=== PATIENT | male | born 1970 | race Caucasian/White ===

== ENCOUNTER 2016-08-07 19:45 | Emergency (ER) | payer MEDICARE, OTHER ==
[~2016-08-07 19:45] MED LIST: ACET325T9 PO; ASPI81TA50 PO; ASPI81TA9 PO; CALC200T3 PO; DEBROX; DICL100G7 TP; DIVA250T PO; DIVA500T17 PO; DIVA500T9 PO; ECON15CR TP; FLUT16SP NS; FLUT9.9S NS; LAMISIL; LEVO25TA4 PO; LOPE1LIQ7 PO; LORA10TA3 PO; MAGN400O4 PO; MIDO2.5T PO; MIDO5TAB PO; NIAC500T PO; OLOP2.5D EACHEYE; OMEP40CA5 PO; PHENYLEPHRINE 10% EACHEYE; POLY17PO5 PO; RANI150T6 PO; SERT25TA4 PO; SIMV40TA3 PO; SUCR1ORA PEG; SUCR1TAB PO; ZIPR80CA2 PO
--- NOTE | 2016-08-07 19:55 | ED.ADGEN ---
Past History Past Medical History: GERD, Other Additional Past Medical Histor: Down syndrome Past Surgical History: Appendectomy Alcohol Use: None Drug Use: None Adult General Chief Complaint Chief Complaint ".. I vomited today.. (1).. " [facility] HPI Patient is a 45 year old male who presents with above hx and complaints nausea, vomiting and some generalized abd. pain. Patient states he is passing a lot of gas. Pt. does not remember his last stool. Ate lunch. Pt. reportedly drank too much chocolate milk tonight.. and now his stomach hurts. No recent trauma. No recent travel. No specific ill contacts. Review of Systems Review of Systems Constitutional: Denies fever or chills [] Eyes: Denies change in visual acuity, redness, or eye pain [] HENT: Denies nasal congestion or sore throat [] Respiratory: Denies cough or shortness of breath [] Cardiovascular: No additional information not addressed in HPI [] GI: Complaints of generalized abdominal pain, nausea, vomiting x1 and constipation. Pt. denies, bloody stools or diarrhea [] : Denies dysuria or hematuria [] Musculoskeletal: Denies back pain or joint pain [] Integument: Denies rash or skin lesions [] Neurologic: Denies headache, focal weakness or sensory changes [] Endocrine: Denies polyuria or polydipsia [] Family History Family History Noncontributory Current Medications Current Medications Current Medications Medications (Trade) Dose Ordered Sig/Richard Start Time Stop Time Status Last Admin Dose Admin Famotidine (Pepcid) 20 mg 1X ONCE 08/07/16 21:00 08/07/16 21:01 DC 08/07/16 20:45 20 MG Magnesium Hydroxide (Milk Of Magnesia) 2,400 mg 1X ONCE 08/07/16 21:00 08/07/16 21:01 DC 08/07/16 20:44 2,400 MG Ondansetron HCl (Zofran Odt) 8 mg 1X ONCE 08/07/16 21:00 08/07/16 21:01 DC 08/07/16 20:45 8 MG Oxycodone/ Acetaminophen (Percocet 10/325) 2 tab 1X ONCE 08/07/16 21:00 08/07/16 21:01 DC 08/07/16 20:45 2 TAB Allergies Allergies Allergies Coded Allergies Type Severity Reaction Last Updated Verified NKMA Allergy Unknown 05/18/16 No Physical Exam Physical Exam Constitutional: , no acute distress, non-toxic appearance. [] HENT: Normocephalic, atraumatic, bilateral external ears normal, oropharynx moist, no oral exudates, nose normal. [] Eyes: PERRLA, EOMI, conjunctiva normal, no discharge. [] Neck: Normal range of motion, no tenderness, supple, no stridor. [] Cardiovascular:Heart rate regular rhythm, no murmur [] Lungs & Thorax: Bilateral breath sounds equal at apexes auscultation [] Abdomen: Bowel sounds normal, soft, no focal areas of tenderness, no masses, no pulsatile masses. [] No true rebound tenderness. Refused rectal at this time. No history of dark tarry stools. Distended abdomen. Old surgical scar. Testicles nontender. Pt is currently having multiple large farts. Skin: Warm, dry, no erythema, no rash. [] Back: No tenderness, no CVA tenderness. [] Extremities: No tenderness, no cyanosis, no clubbing, ROM intact, no edema. [] No psoas or heeltap. Neurologic: Alert and oriented X 3, normal motor function, normal sensory function, no focal deficits noted. [] Psychologic: Affect normal, judgement poor insight, mood normal. [] Current Patient Data Vital Signs Vital Signs Date Time Temp Pulse Resp B/P Pulse Ox O2 Delivery O2 Flow Rate FiO2 08/07/16 19:45 97.2 42 18 98 Room Air EKG EKG [] Radiology/Procedures Radiology/Procedures I interpretation x-ray shows no free air under the diaphragm. Old clips. Increased stool [] Course & Med Decision Making Course & Med Decision Making Pertinent Labs and Imaging studies reviewed. (See chart for details). Stay on a clear fluid diet only for the next 2 days. No solids or milk products. May take Tylenol or ibuprofen for pain. Follow-up primary care. Return if any concerns. [] Final Impression Final Impression 1. Abdomen Pain[] 2. History of special needs-mental retardation ( Down Syndrome) 3. History GERD Problems: Dragon Disclaimer Dragon Disclaimer This electronic medical record was generated, in whole or in part, using a voice recognition dictation system. AL HUMPHRIES MD Aug 07, 2016 19:55
[2016-08-07] MEDS ORDERED: OXYCODONE/APAP 10/325 TABLET. PO ONE (21:00)
[2016-08-07] MEDS ORDERED: FAMOTIDINE 20 MG TABLET PO ONE (21:00)
[2016-08-07] MEDS ORDERED: ONDANSETRON ODT 4 MG TAB.RAPDIS PO ONE (21:00)
[2016-08-07] MEDS ORDERED: MAGNESIUM HYDROXIDE 2,400 MG/30 ML ORAL.SUSP. PO ONE (21:00)
[2016-08-07 21:46] VITALS: BP 128/69
--- NOTE | 2016-08-08 07:37 | RAD ---
Acute abdomen series History: Vomiting and abdominal pain. Comparison: 05/03/2016. Findings: Frontal view of the chest. Cardiac silhouette appears within normal limits for size. No pneumoperitoneum or pneumothorax is identified. No acute infiltrate is seen. Supine and upright views of the abdomen. No dilated loops of bowel are seen. Impression: No acute abnormality identified in the chest or abdomen.
== END 2016-08-07 22:05 | disposition home or self-care (01) ==
LOC: ER 19:45
DX: R10.84 Generalized abdominal pain (principal); R11.2 Nausea with vomiting, unspecified; K59.00 Constipation, unspecified; K21.9 Gastro-esophageal reflux disease without esophagitis; Q90.9 Down syndrome, unspecified; Z90.49 Acquired absence of other specified parts of digestive tract
CPT/HCPCS: 74022; 99284; Q0162

== ENCOUNTER 2016-08-16 19:12 | Emergency (ER) | payer MEDICARE, OTHER ==
[~2016-08-16] VITALS: Ht 157.5 cm; Wt 66.9 kg
[2016-08-16 19:14] VITALS: BP 140/74
--- NOTE | 2016-08-16 19:46 | PHYS DOC ---
General Chief Complaint: NAUSEA/VOMITING/DIARRHEA Stated Complaint: NAUSEA Time Seen by MD: 19:30 Source: patient, EMS Problems: History of Present Illness Initial Comments Patient here by EMS with nausea. Patient does have Down syndrome is somewhat of a difficult historian. As best I can gather the story from EMS, the patient drank some cold soda and Garrison-Aid today, complained of nausea, and called EMS. In speaking with the patient, he says he is here because he doesn't feel well. When asked what happened today, he does admit to drinking Garrison-Aid and pop in that he didn't feel well after that. He doesn't quite stated he had nausea, but thinks she may have vomited. He is unable to tell me how many times he vomited, when this happened, or if there is any blood or bilious material. Is review systems is nearly uniformly positive, and he acknowledges every complaint back and ask about. He says he had fever chills URI symptoms or cough. He acknowledges chest pain or shortness of breath. He has abdominal pain nausea vomiting or change amount or bladder habits. He also says his weakness numbness and tingling all the legs. I do think much of this is due to the patient's known Down syndrome and difficulty with questions a communication. Unfortunate, there is no one here to help answer questions for him or provide any additional history. His past nuchal history according him is unremarkable. He says he supposed to be on some medication but doesn't know what they are and doesn't take them. He is a nonsmoker and nonuser of ethanol. He says he lives by himself. Allergies: Coded Allergies: No Known Drug Allergies (Unverified , 08/16/16) Past Medical History Medical History: other Surgical History: appendectomy Social History Smoker: non-smoker Alcohol: none Review of Systems All Other Systems: Reviewed and Negative (Note the patient's review of systems essentially uniformly positive, probably secondary to his known Down syndrome and intellectual challenges.) Physical Exam General Appearance: WD/WN, no apparent distress Eyes: bilateral eye EOMI, bilateral eye PERRL, bilateral eye normal inspection Ear, Nose, Throat: normal pharynx Neck: full range of motion, supple, normal inspection Respiratory: lungs clear, normal breath sounds, no respiratory distress Cardiovascular: regular rate, rhythm, no edema Gastrointestinal: soft, no organomegaly, tenderness Back: no CVA tenderness, no vertebral tenderness Extremities: non-tender, normal inspection, no pedal edema Neurologic/Psychiatric: no motor/sensory deficits, alert, normal mood/affect Skin: normal color Lymphatic: no adenopathy Comments Generally this a well-developed well-nourished white male in no acute distress. Vitals are as noted. HEENT shows ears and throat to be clear. He has clear facies of Down syndrome. Neck is supple without adenopathy or JVD. There's no meningeal signs. Chest is clear and cardiovascular exam shows regular rate and rhythm without murmur. The abdomen does show some mild epigastric tenderness. There is no masses, organomegaly, or perineal findings. Back shows no CVA tenderness. Extremities show no rash cyanosis or edema. Neurologic exam finds patient awake alert oriented to person and place but not to time. I suspect this is his baseline. He does move all extremities well spontaneously with good tone. He is not toxic, lethargic nor irritable. Overall I think his neurologic status is baseline given his Down syndrome. Remainder of physical exam is clinically unremarkable. Orders, Labs, Meds Old charts note patient's very well-known the ER. This is fourth visit this year , with prior visits for abdominal pain and medical screening exams. He was seen in the ER 13 times last year, the vast majority for abdominal pain, and admitted to the hospital in August for syncope and in June for nausea and vomiting. 210 Patient resting comfortably in the ER. He's been able tolerate a GI cocktail as well as by mouth fluids without difficulty. He has no further complaints of nausea. Now is complaining of upper back pain. I did reexamine the area. He continues to have no signs of trauma over the back, no vertebral tenderness, and no bony tenderness in the posterior chest. There is no step- offs or deformities. There is minimal inconsistent tenderness to palpation over the thoracic musculature. Chest remains clear to auscultation bilaterally has no signs of respiratory distress. I discussed with the patient the uncertain cause of his discomfort. This appears to be new complaints since he initially presented. His nausea which she previously had is fully resolved, and is able tolerate by mouth fluids. We will need to investigate his living situation, to make sure we get a ride home and that he is going back to an appropriate setting. We'll ask him to follow up with primary care or return to the ER sooner as needed for worsening anyway. We will caution him is to excessive Garrison- Aid and so to use as well. I do wonder about his comprehension, it's my understanding that he has a medical case worker. We'll try to contact the medical case worker let them know the patient is been here and provide follow-up instructions. Patient apparently really does live by himself and every time they tried to place him in a group setting, he gets violent and is unable to stay. He looks well, in no acute discomfort distress, okay for discharge home at this time. ALRFED WASHINGTON MD Aug 16, 2016 19:45
[2016-08-16] MEDS ORDERED: LIDO:MAALOX 1:1 20 ML SINGLE DOSE PO ONE (20:15)
== END 2016-08-16 22:03 | disposition home or self-care (01) ==
LOC: ER 19:12
DX: R11.0 Nausea (principal); M54.89 Other dorsalgia; R20.0 Anesthesia of skin; R10.9 Unspecified abdominal pain; Q90.9 Down syndrome, unspecified
CPT/HCPCS: 99283

== ENCOUNTER 2016-08-17 11:00 | Emergency (ER) | payer MEDICARE, OTHER ==
[~2016-08-17] VITALS: Ht 157.5 cm; Wt 66.9 kg
--- NOTE | 2016-08-17 11:22 | EKG ---
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
[2016-08-17] MEDS ORDERED: IBUPROFEN 600 MG TABLET. PO ONE (11:30)
--- NOTE | 2016-08-17 11:34 | RAD ---
PORTABLE CHEST 1V Clinical Indication: chest pain Comparison: August 07, 2016. Technique: Portable upright AP view of the chest is obtained. Findings: No focal consolidation, pleural effusion or pneumothorax is seen. Cardiomediastinal silhouette is within normal limits of size. Visualized osseous structures and overlying soft tissues demonstrate no acute interval change. IMPRESSION: No focal consolidation or acute radiographic change.
[2016-08-17 11:50] VITALS: BP 106/69
--- NOTE | 2016-08-17 12:06 | ED.ADGEN ---
Past History Past Medical History: Anxiety, Constipation, GERD, High Cholesterol, Hypothyroid, Hypotension, Other Additional Past Medical Histor: Down syndrome Past Surgical History: Appendectomy Alcohol Use: None Drug Use: None Adult General HPI HPI Patient is a 46-year-old male presents emergency department complaining of right upper chest pain that began while eating this afternoon. Patient denies any other associated symptoms. He denies any diaphoresis, dyspnea, nausea, vomiting. Has had no prehospital intervention for his discomfort. Review of Systems Review of Systems Constitutional: Denies fever or chills [] Eyes: Denies change in visual acuity, redness, or eye pain [] HENT: Denies nasal congestion or sore throat [] Respiratory: Denies cough or shortness of breath [] Cardiovascular: No additional information not addressed in HPI [] GI: Denies abdominal pain, nausea, vomiting, bloody stools or diarrhea [] : Denies dysuria or hematuria [] Musculoskeletal: Denies back pain or joint pain [] Integument: Denies rash or skin lesions [] Neurologic: Denies headache, focal weakness or sensory changes [] Endocrine: Denies polyuria or polydipsia [] Current Medications Current Medications Current Medications Medications (Trade) Dose Ordered Sig/Richard Start Time Stop Time Status Last Admin Dose Admin Ibuprofen (Motrin) 600 mg 1X ONCE 08/17/16 11:30 08/17/16 11:32 DC 08/17/16 11:22 600 MG Allergies Allergies Allergies Coded Allergies Type Severity Reaction Last Updated Verified No Known Drug Allergies 08/16/16 No Physical Exam Physical Exam Constitutional: Well developed, well nourished, no acute distress, non-toxic appearance. [] HENT: Normocephalic, atraumatic, bilateral external ears normal, oropharynx moist, no oral exudates, nose normal. [] Eyes: PERRLA, EOMI, conjunctiva normal, no discharge. [] Neck: Normal range of motion, no tenderness, supple, no stridor. [] Cardiovascular:Heart rate regular rhythm, no murmur [] Lungs & Thorax: Bilateral breath sounds clear to auscultation [] Abdomen: Bowel sounds normal, soft, no tenderness, no masses, no pulsatile masses. [] Skin: Warm, dry, no erythema, no rash. [] Back: No tenderness, no CVA tenderness. [] Extremities: No tenderness, no cyanosis, no clubbing, ROM intact, no edema. [] Neurologic: Alert and oriented X 3, normal motor function, normal sensory function, no focal deficits noted. [] Psychologic: Affect normal, judgement normal, mood normal. [] Current Patient Data Vital Signs Vital Signs Date Time Temp Pulse Resp B/P Pulse Ox O2 Delivery O2 Flow Rate FiO2 08/17/16 11:00 98.0 50 12 98 Room Air Lab Results Laboratory Tests Test 08/17/16 11:38 POC Troponin I 0.00ng/ml (<0.08) EKG EKG EKG interpreted by me, sinus bradycardia, 46 bpm, no ST segment elevation, incomplete right bundle-branch block, [] Radiology/Procedures Radiology/Procedures PORTABLE CHEST 1V Clinical Indication: chest pain Comparison: August 07, 2016. Technique: Portable upright AP view of the chest is obtained. Findings: No focal consolidation, pleural effusion or pneumothorax is seen. Cardiomediastinal silhouette is within normal limits of size. Visualized osseous structures and overlying soft tissues demonstrate no acute interval change. IMPRESSION: No focal consolidation or acute radiographic change. DICTATED AND SIGNED BY: JOSIAH GONZALES MD DATE: 08/17/16 1130 CC: CHRIS CONTRERAS MD; LILY TAVARES MD ~ [] Course & Med Decision Making Course & Med Decision Making Pertinent Labs and Imaging studies reviewed. (See chart for details) Reassuring workup. Discharged home with supportive care and follow-up instructions. [] Final Impression Final Impression Chest wall pain [] Problems: Dragon Disclaimer Dragon Disclaimer This electronic medical record was generated, in whole or in part, using a voice recognition dictation system. CHRIS CONTRERAS MD Aug 17, 2016 12:06
== END 2016-08-17 11:51 | disposition home or self-care (01) ==
LOC: ER 11:00
DX: R07.89 Other chest pain (principal); K21.9 Gastro-esophageal reflux disease without esophagitis; E78.00 Pure hypercholesterolemia, unspecified; E03.9 Hypothyroidism, unspecified; Q90.9 Down syndrome, unspecified
CPT/HCPCS: 71010; 84484; 93005; 99284

== ENCOUNTER 2016-09-28 19:32 | Emergency (ER) | payer MEDICARE, OTHER ==
[~2016-09-28] VITALS: Ht 157.5 cm; Wt 66.9 kg
[~2016-09-28 19:32] MED LIST changes: +ASPI-612 PO; -ASPI81TA9 PO; +DICL100G18 TP; -DICL100G7 TP; -FLUT16SP NS; +FLUT16SP21 NS; +IBUP600T16 PO; -MAGN400O4 PO; +MAGN400O7 PO; +ONDA4TAB10 SL; -SUCR1ORA PEG; +SUCR1ORA11 PEG
[2016-09-28 19:35] VITALS: BP 120/53
[2016-09-28] MEDS ORDERED: IV NORMAL SALINE 1,000ML 1,000 ML IV SCH (20:05)
--- NOTE | 2016-09-28 20:05 | PHYS DOC ---
Past History Past Medical History: Anxiety, Constipation, GERD, High Cholesterol, Hypothyroid, Hypotension, Other Additional Past Medical Histor: Down syndrome Past Surgical History: Appendectomy Alcohol Use: None Drug Use: None Adult General Chief Complaint Chief Complaint: [facility]BDOM[facility]AL PAIN [facility] HPI This patient is a pleasant 46-year-old male with history of Down syndrome presents with right shoulder pain after a fall today and epigastric abdominal pain. Patient reports that throughout the course of the day he ate normally but is complaining of midepigastric abdominal discomfort at this time. Patient reports he does feel sick to stomach. Patient denies any diarrhea. Patient has any cough cold or runny nose. Patient does not think he's had a fever. History is limited secondary to patient's history of Down syndrome. Patient describes the abdominal pain is crampy worsening with direct pressure and he climbs to 10 of 10. Also shoulder pain worse with range of motion especially adduction and extension at the shoulder. Patient says he fell mechanically on the arm directly onto the deltoid. Denies any numbness and tingling denies any other deformity or pain in the elbow wrist or hand. Review of Systems Review of Systems Constitutional: Denies fever or chills [] Eyes: Denies change in visual acuity, redness, or eye pain [] HENT: Denies nasal congestion or sore throat [] Respiratory: Denies cough or shortness of breath [] Cardiovascular: No additional information not addressed in HPI [] GI: Some epigastric abdominal pain with nausea without vomiting or diarrhea : Denies dysuria or hematuria [] Musculoskeletal: Denies back he does complain of right shoulder pain Integument: Denies rash or skin lesions [] Neurologic: Denies headache, focal weakness or sensory changes [] Endocrine: Denies polyuria or polydipsia [] Allergies Allergies Allergies Coded Allergies Type Severity Reaction Last Updated Verified No Known Drug Allergies 08/16/16 No Physical Exam Physical Exam Constitutional: Well developed, well nourished, he is obvious uncomfortable but nontoxic there is no obvious external jones or deformities of trauma. HENT: Normocephalic, atraumatic, bilateral external ears normal, oropharynx moist, no oral exudates, nose normal. [] Eyes: PERRLA, EOMI, conjunctiva normal, no discharge. [] Neck: Normal range of motion, no tenderness, supple, no stridor. [] Cardiovascular:Heart rate regular rhythm, no murmur [] Lungs & Thorax: Bilateral breath sounds clear to auscultation [] Abdomen: Bowel sounds normal, soft, redness along the epigastric region with no masses or pulsatile masses no guarding rebound or organomegaly. No Buck's or McBurney's point tenderness palpation. Skin: Warm, dry, no erythema, no rash. [] Back: No tenderness, no CVA tenderness. [] Extremities: Demonstrates tenderness along the anterior portion of the deltoid without obvious signs of deformity jones or soft tissue swelling. Neurologic: Alert and oriented X 3, normal motor function, normal sensory function, no focal deficits noted. [] Psychologic: Affect normal, judgement normal, mood normal. Patient is not emotional and very appropriate limited history because given Down syndrome. Current Patient Data Vital Signs Vital Signs Date Time Temp Pulse Resp B/P (MAP) Pulse Ox O2 Delivery O2 Flow Rate FiO2 09/28/16 19:35 96.8 49 18 120/53 (75) 100 Room Air Lab Results Laboratory Tests Test 09/28/16 20:30 White Blood Count 4.6 x10^3/uL (4.0-11.0) Red Blood Count 3.56 x10^6/uL (4.30-5.70) L Hemoglobin 12.8 g/dL (13.0-17.5) L Hematocrit 37.3 % (39.0-53.0) L Mean Corpuscular Volume 105 fL (79-100) H Mean Corpuscular Hemoglobin 36 pg (25-35) H Mean Corpuscular Hemoglobin Concent 34 g/dL (31-37) Red Cell Distribution Width 14.1 % (11.5-14.5) Platelet Count 241 x10^3/uL (140-400) Neutrophils (%) (Auto) 51 % (31-73) Lymphocytes (%) (Auto) 37 % (24-48) Monocytes (%) (Auto) 10 % (0-9) H Eosinophils (%) (Auto) 0 % (0-3) Basophils (%) (Auto) 2 % (0-3) Neutrophils # (Auto) 2.4 x10^3uL (1.8-7.7) Lymphocytes # (Auto) 1.7 x10^3/uL (1.0-4.8) Monocytes # (Auto) 0.4 x10^3/uL (0.0-1.1) Eosinophils # (Auto) 0.0 x10^3/uL (0.0-0.7) Basophils # (Auto) 0.1 x10^3/uL (0.0-0.2) Sodium Level 138 mmol/L (136-145) Potassium Level 4.1 mmol/L (3.5-5.1) Chloride Level 100 mmol/L (98-107) Carbon Dioxide Level 31 mmol/L (21-32) Anion Gap 7 (6-14) Blood Urea Nitrogen 11 mg/dL (8-26) Creatinine 1.3 mg/dL (0.7-1.3) Estimated GFR (Cockcroft-Gault) 59.4 BUN/Creatinine Ratio 8 (6-20) Glucose Level 80 mg/dL (70-99) Calcium Level 8.6 mg/dL (8.5-10.1) Total Bilirubin 0.4 mg/dL (0.2-1.0) Aspartate Amino Transferase (AST) 21 U/L (15-37) Alanine Aminotransferase (ALT) 26 U/L (16-63) Alkaline Phosphatase 75 U/L (46-116) Total Protein 6.5 g/dL (6.4-8.2) Albumin 3.4 g/dL (3.4-5.0) Albumin/Globulin Ratio 1.1 (1.0-1.7) Lipase 102 U/L (73-393) EKG EKG [] Radiology/Procedures Radiology/Procedures [] X-ray of right shoulder completed at 195409/28/[address] Crawford demonstrates normal bony inferences with no evidence of fracture clavicles the right place no evidence of before meals joint separation Y view does not show any subluxation or dislocation. Lung mix that are visualized do not demonstrate insensate pneumothorax no obvious rib fractures noted on x-ray. Course & Med Decision Making Course & Med Decision Making Pertinent Labs and Imaging studies reviewed. (See chart for details this patient is a pleasant 40 sexual male with repeated complaint of abdominal pain after eating. Patient's abdomen is soft epigastric pain is not reproducible on exam but patient is pain-free at this time. He's had multiple x-rays of his abdomen and we talked about reducing radiation at this time. Patient complaint is right shoulder after a fall from standing. Physical exam reveals muscle injury without bony fracture or soft tissue swelling or nerve injury based on physical exam findings. Patient resting comfortably without issue given fluids and antiemetics here in the ER will be disposition with Tylenol and Motrin follow-up with his primary care doctor and a sling for comfort. Impression soft tissue contusion to the right shoulder from a fall from standing without evidence of fracture. Impression epigastric abdominal pain from unclear etiology doubt pancreatitis, cholelithiasis, cholecystitis, small bowel section gastroneuritis, gastritis or peptic ulcer disposition. Follow-up with his regular doctor 24-48 hours for any continued symptoms given antacids as well as some in for nausea and Motrin. [] Dragon Disclaimer Dragon Disclaimer This chart was dictated in whole or in part using Voice Recognition software in a busy, high-work load, and often noisy Emergency Department environment. It may contain unintended and wholly unrecognized errors or omissions. Departure Departure: Impression: Primary Impression: Abdominal pain Additional Impressions: GERD (gastroesophageal reflux disease) Shoulder contusion Right shoulder strain Disposition: HOME, SELF-CARE Condition: GOOD Referrals: LILY TAVARES MD (PCP) Patient Instructions: Abdominal Pain (Nonspecific), Contusion, Shoulder Exercises, Generic, SportsMed Additional Instructions: This return for any new or increasing symptoms or if you have any questions or concerns. I would advise a follow-up to primary care doctor to review your medications and see her doctor for possible GI referral for EGD for possible peptic ulcer or gastritis evaluation. Scripts Ondansetron (ZOFRAN ODT) 8 Mg Tab.rapdis 4 MG PO QID for 7 Days Prov: PARVEEN CRAWFORD MD 09/28/16 Pantoprazole Sodium (PROTONIX) 40 Mg Tablet.dr 1 TAB PO DAILY, #30 TAB 5 Refills Prov: PARVEEN CRAWFORD MD 09/28/16 Sucralfate (CARAFATE) 1 Gm Tablet 1 TAB PO QID, #30 TAB 1 Refill Prov: PARVEEN CRAWFORD MD 09/28/16 Problem Qualifiers PARVEEN CRAWFORD MD September 28, 2016 20:05
[2016-09-28] MEDS ORDERED: KETOROLAC 30 MG/ML VIAL. IV ONE (20:15)
[2016-09-28] MEDS ORDERED: 0.9 % SODIUM CHLORIDE 10 ML DISP.SYRIN. IV PRN (20:15)
[2016-09-28] MEDS ORDERED: ONDANSETRON PF 4 MG/2 ML VIAL. IV ONE (20:15)
[2016-09-28 20:46] LABS: BASO # 0.1 x10^3/uL (0.0-0.2); BASO % 2 % (0-3); EOS % 0 % (0-3); HEMATOCRIT 37.3 % (39.0-53.0); HEMOGLOBIN 12.8 g/dL (13.0-17.5); LYMPH # 1.7 x10^3/uL (1.0-4.8); LYMPH % 37 % (24-48); MEAN CORPUSCULAR HEMOGLOBIN 36 pg (25-35); MEAN CORPUSCULAR HGB CONC 34 g/dL (31-37); MEAN CORPUSCULAR VOLUME 105 fL (79-100); MONO # 0.4 x10^3/uL (0.0-1.1); MONO % 10 % (0-9); NEUT # 2.4 x10^3uL (1.8-7.7); NEUT % 51 % (31-73); PLATELET COUNT 241 x10^3/uL (140-400); RED BLOOD COUNT 3.56 x10^6/uL (4.30-5.70); RED CELL DISTRIBUTION WIDTH 14.1 % (11.5-14.5); WHITE BLOOD COUNT 4.6 x10^3/uL (4.0-11.0)
[2016-09-28 21:01] LABS: ALBUMIN 3.4 g/dL (3.4-5.0); ALBUMIN/GLOBULIN RATIO 1.1 (1.0-1.7); CALCIUM 8.6 mg/dL (8.5-10.1); CREATININE 1.3 mg/dL (0.7-1.3); GFR 59.4; POTASSIUM 4.1 mmol/L (3.5-5.1); TOTAL BILIRUBIN 0.4 mg/dL (0.2-1.0); TOTAL PROTEIN 6.5 g/dL (6.4-8.2)
[2016-09-28] MEDS ORDERED: SUCR1TAB35 PO (21:37)
[2016-09-28] MEDS ORDERED: PANT40TA3 PO (21:37)
[2016-09-28] MEDS ORDERED: ONDA8TAB12 PO (21:37)
--- NOTE | 2016-09-29 08:41 | RAD ---
Right shoulder 3 views. History: Shoulder pain 3 views were taken of the right shoulder. There is not evidence of a fracture or dislocation or acute osseous abnormality. Impression: 1. Negative right shoulder.
== END 2016-09-28 22:20 | disposition home or self-care (01) ==
LOC: ER 19:32
DX: S46.911A Strain of unspecified muscle, fascia and tendon at shoulder and upper arm level, right arm, initial encounter (principal); K21.9 Gastro-esophageal reflux disease without esophagitis; E03.9 Hypothyroidism, unspecified; E78.00 Pure hypercholesterolemia, unspecified; Q90.9 Down syndrome, unspecified; W19.XXXA Unspecified fall, initial encounter; Y93.89 Activity, other specified; Y92.89 Other specified places as the place of occurrence of the external cause; Y99.8 Other external cause status; Z90.49 Acquired absence of other specified parts of digestive tract
CPT/HCPCS: 36415; 73030; 80053; 83690; 85027; 96361; 96374; 96375; 99285; J1885; J2405; J7030

== ENCOUNTER 2016-10-10 22:05 | Emergency (ER) | payer MEDICARE, OTHER ==
[~2016-10-10 22:05] MED LIST changes: +ONDA8TAB12 PO; +PANT40TA3 PO; +SUCR1TAB35 PO
--- NOTE | 2016-10-10 22:41 | PHYS DOC ---
Past History Past Medical History: Anxiety, Constipation, GERD, High Cholesterol, Hypothyroid, Hypotension, Other Additional Past Medical Histor: Down syndrome Past Surgical History: No Surgical History, Appendectomy Alcohol Use: None Drug Use: None Adult General Chief Complaint Chief Complaint: ABDOMINAL PAIN HPI HPI Patient is a 46 year old M who presents with presents with abdominal pain after drinking chocolate milk and soda. Patient states he had some nausea and vomiting therefore called the ambulance. Patient denies any fevers. Patient denies any chest pain shortness of breath. Patient has no other complaints. Patient states he feels better than emergency room. Pertinent exam findings: Abdomen soft nontender bowel sounds are normal 4 quadrants ED course: Patient is seen and examined CBC, CMP, lipase, acute abdominal series were ordered 0024: Updated the patient on lab results and x-ray results. During the patient' s stay the emergency room he had no nausea or vomiting. On reexamination patient feels much better and is ready to go home. Pertinent results: Acute abdominal series shows no air fluid levels to suggest a small bowel obstruction Laboratory was unremarkable MDM: After reviewing the chart, CC/HPI/PMH, physical exam, [lab results], [ radiological results], do not believe the patient has a intra-abdominal emergency warranting further workup and/or admission at this time. I do not believe the patient has an acute small bowel obstruction. On reexamination the patient's belly is soft nontender and the patient had no nausea or vomiting while in the emergency room. Patient is stable for discharge. Patient is comfortable going home. Additional verbal discharge instructions were provided to the patient and that if symptoms get worse or any new symptoms arise that are worrisome to the patient he is to return to the emergency room immediately Review of Systems Review of Systems GEN: Denies fevers, chills, sweats HEENT: Denies blurred vision, sore throat CV: Denies chest pain RESP: Denies shortness of air, cough GI: Abdominal pain NEURO: Denies confusion, dizziness MSK: Denies weakness, joint pain/swelling Allergies Allergies Allergies Coded Allergies Type Severity Reaction Last Updated Verified No Known Drug Allergies 08/16/16 No Physical Exam Physical Exam GEN.: No apparent distress. Alert and oriented. HEENT: Head is normocephalic, atraumatic NECK: Supple. LUNGS: CTAB. HEART: RRR, S1, S2 present. Peripheral pulses intact ABDOMEN: Soft, nontender. Positive bowel sounds. EXTREMITIES: Without any cyanosis. NEUROLOGIC: Normal speech, normal tone PSYCHIATRIC: Normal affect, normal mood. SKIN: No ulcerations Current Patient Data Lab Results Laboratory Tests Test 10/10/16 23:40 White Blood Count 4.2 x10^3/uL Red Blood Count 3.17 x10^6/uL Hemoglobin 11.6 g/dL Hematocrit 33.8 % Mean Corpuscular Volume 107 fL Mean Corpuscular Hemoglobin 37 pg Mean Corpuscular Hemoglobin Concent 34 g/dL Red Cell Distribution Width 14.4 % Platelet Count 211 x10^3/uL Neutrophils (%) (Auto) 47 % Lymphocytes (%) (Auto) 42 % Monocytes (%) (Auto) 8 % Eosinophils (%) (Auto) 1 % Basophils (%) (Auto) 2 % Neutrophils # (Auto) 1.9 x10^3uL Lymphocytes # (Auto) 1.8 x10^3/uL Monocytes # (Auto) 0.3 x10^3/uL Eosinophils # (Auto) 0.0 x10^3/uL Basophils # (Auto) 0.1 x10^3/uL Urine Collection Type Void Urine Color Straw Urine Clarity Clear Urine pH 5.5 Urine Specific [place] <=1.005 Urine Protein Neg Urine Glucose (UA) Neg mg/dL Urine Ketones (Stick) Neg mg/dL Urine Blood Neg Urine Nitrite Neg Urine Bilirubin Neg Urine Urobilinogen Dipstick 0.2 mg/dL Urine Leukocyte Esterase Neg Urine RBC 0 /HPF Urine WBC 0 /HPF Urine Squamous Epithelial Cells Occ /LPF Urine Bacteria 0 /HPF Sodium Level 142 mmol/L Potassium Level 3.3 mmol/L Chloride Level 104 mmol/L Carbon Dioxide Level 32 mmol/L Anion Gap 6 Blood Urea Nitrogen 8 mg/dL Creatinine 1.2 mg/dL Estimated GFR (Cockcroft-Gault) 65.2 BUN/Creatinine Ratio 7 Glucose Level 72 mg/dL Calcium Level 7.9 mg/dL Total Bilirubin 0.3 mg/dL Aspartate Amino Transf (AST/SGOT) 22 U/L Alanine Aminotransferase (ALT/SGPT) 28 U/L Alkaline Phosphatase 70 U/L Total Protein 6.2 g/dL Albumin 3.1 g/dL Albumin/Globulin Ratio 1.0 Lipase 127 U/L EKG EKG [] Radiology/Procedures Radiology/Procedures Acute abdominal series shows no air fluid levels to suggest an acute small bowel obstruction [] Course & Med Decision Making Course & Med Decision Making Pertinent Labs and Imaging studies reviewed. (See chart for details) [] Dragon Disclaimer Dragon Disclaimer This chart was dictated in whole or in part using Voice Recognition software in a busy, high-work load, and often noisy Emergency Department environment. It may contain unintended and wholly unrecognized errors or omissions. Departure Departure: Impression: Primary Impression: Nausea and vomiting Additional Impression: Abdominal pain Disposition: HOME, SELF-CARE Condition: IMPROVED Referrals: LILY TAVARES MD (PCP) Patient Instructions: Nausea and Vomiting, [id number] Additional Instructions: Recommend follow-up with PCP in one to 2 days return symptoms increase Scripts Ondansetron (ZOFRAN ODT) 4 Mg Tab.rapdis 1 TAB SL Q8HRS, #10 TAB Prov: ARLENE KO DO 10/11/16 Problem Qualifiers Primary Impression: Nausea and vomiting Vomiting type: unspecified Vomiting Intractability: unspecified Qualified Codes: R11.2 - Nausea with vomiting, unspecified Additional Impression: Abdominal pain Abdominal location: unspecified location Qualified Codes: R10.9 - Unspecified abdominal pain ARLENE KO DO Oct 10, 2016 22:41
[2016-10-11 00:01] LABS: BASO # 0.1 x10^3/uL (0.0-0.2); BASO % 2 % (0-3); EOS % 1 % (0-3); HEMATOCRIT 33.8 % (39.0-53.0); HEMOGLOBIN 11.6 g/dL (13.0-17.5); LYMPH # 1.8 x10^3/uL (1.0-4.8); LYMPH % 42 % (24-48); MEAN CORPUSCULAR HEMOGLOBIN 37 pg (25-35); MEAN CORPUSCULAR HGB CONC 34 g/dL (31-37); MEAN CORPUSCULAR VOLUME 107 fL (79-100); MONO # 0.3 x10^3/uL (0.0-1.1); MONO % 8 % (0-9); NEUT # 1.9 x10^3uL (1.8-7.7); NEUT % 47 % (31-73); PLATELET COUNT 211 x10^3/uL (140-400); RED BLOOD COUNT 3.17 x10^6/uL (4.30-5.70); RED CELL DISTRIBUTION WIDTH 14.4 % (11.5-14.5); WHITE BLOOD COUNT 4.2 x10^3/uL (4.0-11.0)
[2016-10-11 00:10] LABS: ALBUMIN 3.1 g/dL (3.4-5.0); BILIRUBIN,URINE NEG (NEG); CALCIUM 7.9 mg/dL (8.5-10.1); CLARITY,URINE CLEAR; COLOR,URINE STRAW; CREATININE 1.2 mg/dL (0.7-1.3); GFR 65.2; GLUCOSE,URINE NEG (NEG); POTASSIUM 3.3 mmol/L (3.5-5.1); TOTAL BILIRUBIN 0.3 mg/dL (0.2-1.0); TOTAL PROTEIN 6.2 g/dL (6.4-8.2)
[2016-10-11 00:11] LABS: BACTERIA,URINE 0 /HPF (0-FEW); NITRITE,URINE NEG (NEG); RBC,URINE 0 /HPF (0-2); SQUAMOUS EPITHELIAL CELL,UR OCC /LPF; UROBILINOGEN,URINE 0.2 mg/dL (0.2 mg/dL); WBC,URINE 0 /HPF (0-4)
[2016-10-11 00:21] VITALS: BP 108/63
[2016-10-11] MEDS ORDERED: ONDA4TAB10 SL (00:28)
--- NOTE | 2016-10-11 08:02 | RAD ---
Indication abdominal pain. A single view of the chest as well as flat and upright films of the abdomen were obtained. Comparison is made to a similar series of films approximately 2 months earlier. The heart, pulmonary vessels and mediastinum appear normal. The lungs are clear. There has not been a significant change in the appearance of the chest compared to the previous exam. There is no free air. The gas pattern has a nonobstructive appearance. Some gas is seen in small bowel loops which is a nonspecific finding. Similar appearance was seen on the previous exam. No organomegaly or abnormal calculi are seen. IMPRESSION: No acute finding in the chest. Nonobstructive abdominal gas pattern.
== END 2016-10-11 00:40 | disposition home or self-care (01) ==
LOC: ER 22:05
DX: R10.9 Unspecified abdominal pain (principal); R11.2 Nausea with vomiting, unspecified; K21.9 Gastro-esophageal reflux disease without esophagitis; E03.9 Hypothyroidism, unspecified; E78.00 Pure hypercholesterolemia, unspecified; Q90.9 Down syndrome, unspecified; F41.9 Anxiety disorder, unspecified; Z90.49 Acquired absence of other specified parts of digestive tract
CPT/HCPCS: 36415; 74022; 80053; 81001; 83690; 85027; 99285-25

== ENCOUNTER 2016-10-18 17:50 | Emergency (ER) | payer MEDICARE, OTHER ==
[~2016-10-18] VITALS: Ht 157.5 cm; Wt 66.9 kg
[2016-10-18] MEDS ORDERED: ONDANSETRON ODT 4 MG TAB.RAPDIS ONE (18:16)
--- NOTE | 2016-10-18 18:21 | PHYS DOC ---
Past History Past Medical History: Anxiety, Constipation, Depression, GERD, High Cholesterol , Hypothyroid, Hypotension, Other Additional Past Medical Histor: Down syndrome Past Surgical History: Appendectomy Alcohol Use: None Drug Use: None Adult General Chief Complaint Chief Complaint: ABDOMINAL PAIN HPI HPI Patient is a 46 year old male who presents with complaint of abdominal pain, nausea, and vomiting. Patient has history of intellectual disability and GERD. Patient has had multiple visits to the emergency department for similar complaints. Patient has noted in the past that he gets problems with nausea and vomiting after drinking soda. Patient does admit that he drank soda prior to onset of symptoms today. The patient points to the middle of his abdomen when asked where he is feeling pain at this time. Patient states that he did not take any medications to help with symptoms. Patient states that he last vomited earlier today rate patient has had no vomiting in the emergency department since arrival. Patient had a recent visit to the emergency department on October or he had lab work and x-ray images of his abdomen which were unremarkable. Patient rates his pain as 8 out of 10 currently. Patient describes the pain as dull and burning. Patient states that the pain does radiate up into his chest which she states is typical when he gets these episodes. Review of Systems Review of Systems Constitutional: Denies fever or chills [] Eyes: Denies change in visual acuity, redness, or eye pain [] HENT: Denies nasal congestion or sore throat [] Respiratory: Denies cough or shortness of breath [] Cardiovascular: Denies chest pressure or edema [] GI: Abdominal pain, nausea, vomiting, denies diarrhea [] : Denies dysuria or hematuria [] Musculoskeletal: Denies back pain or joint pain [] Integument: Denies rash or skin lesions [] Neurologic: Denies headache, focal weakness or sensory changes [] Current Medications Current Medications Current Medications Medications (Trade) Dose Ordered Sig/Richard Start Time Stop Time Status Last Admin Dose Admin Ondansetron HCl (Zofran Odt) 4 mg STK-MED ONCE 10/18/16 18:16 10/18/16 18:17 DC Allergies Allergies Allergies Coded Allergies Type Severity Reaction Last Updated Verified No Known Drug Allergies 08/16/16 No Physical Exam Physical Exam Constitutional: Well developed, well nourished, no acute distress, non-toxic appearance. [] HENT: Normocephalic, atraumatic, bilateral external ears normal, oropharynx moist, no oral exudates, nose normal. [] Eyes: PERRLA, EOMI, conjunctiva normal, no discharge. [] Neck: Normal range of motion, no tenderness, supple, no stridor. [] Cardiovascular:Heart rate regular rhythm, no murmur [] Lungs & Thorax: Bilateral breath sounds clear to auscultation [] Abdomen: Bowel sounds normal, soft, mild diffuse tenderness throughout abdomen, no guarding on exam, no masses, no pulsatile masses. [] Skin: Warm, dry, no erythema, no rash. [] Back: No tenderness, no CVA tenderness. [] Extremities: No tenderness, no cyanosis, no clubbing, ROM intact, no edema. [] Neurologic: Alert and oriented X 3, normal motor function, normal sensory function, no focal deficits noted. [] Current Patient Data Vital Signs Vital Signs Date Time Temp Pulse Resp B/P (MAP) Pulse Ox O2 Delivery O2 Flow Rate FiO2 10/18/16 17:53 97.9 55 16 98 Room Air EKG EKG Not performed [] Radiology/Procedures Radiology/Procedures Not performed [] Course & Med Decision Making Course & Med Decision Making Pertinent Labs and Imaging studies reviewed. (See chart for details) Patient was given Zofran and GI cocktail in the emergency department. On reevaluation, patient's symptoms have improved. The patient is tolerating oral fluids at this time without difficulty. Patient's vital signs remained stable. I have very low suspicion for an acute surgical process within the abdomen. The patient is appropriate for continued outpatient therapy. Advise follow-up with patient's primary doctor in the next 3-5 days for reevaluation and recommended return to the emergency department for any worsening symptoms. Patient voiced understanding and in agreement with treatment plan. Dragon Disclaimer Dragon Disclaimer This chart was dictated in whole or in part using Voice Recognition software in a busy, high-work load, and often noisy Emergency Department environment. It may contain unintended and wholly unrecognized errors or omissions. Departure Departure: Impression: Primary Impression: Abdominal pain Additional Impression: Nausea and vomiting Disposition: 01 HOME, SELF-CARE Condition: IMPROVED Referrals: LILY TAVARES MD (PCP) Patient Instructions: Abdominal Pain (Nonspecific), Nausea and Vomiting Additional Instructions: Follow-up with your primary doctor in the next 3-5 days. Return to the emergency department for any worsening symptoms. Problem Qualifiers Primary Impression: Abdominal pain Abdominal location: generalized Qualified Codes: R10.84 - Generalized abdominal pain Additional Impression: Nausea and vomiting Vomiting type: unspecified Vomiting Intractability: non-intractable Qualified Codes: R11.2 - Nausea with vomiting, unspecified JAY LUNA MD Oct 18, 2016 18:21
[2016-10-18] MEDS ORDERED: LIDO:MAALOX 1:1 20 ML SINGLE DOSE PO ONE (18:45)
[2016-10-18 19:07] VITALS: BP 125/60
== END 2016-10-18 19:21 | disposition home or self-care (01) ==
LOC: ER 17:50
DX: R11.2 Nausea with vomiting, unspecified (principal); R10.84 Generalized abdominal pain; E03.9 Hypothyroidism, unspecified; E78.00 Pure hypercholesterolemia, unspecified; K21.9 Gastro-esophageal reflux disease without esophagitis; Q90.9 Down syndrome, unspecified; Z90.49 Acquired absence of other specified parts of digestive tract
CPT/HCPCS: 99283

== ENCOUNTER 2016-10-31 22:36 | Emergency (ER) | payer MEDICARE, OTHER ==
[~2016-10-31] VITALS: Ht 157.5 cm; Wt 66.9 kg
[2016-10-31] MEDS ORDERED: IV NORMAL SALINE 1,000ML 1,000 ML ONE (23:17)
[2016-10-31] MEDS ORDERED: IV NORMAL SALINE 1,000ML 1,000 ML IV ONE (23:30)
[2016-11-01 00:18] LABS: BILIRUBIN,URINE NEG (NEG); CLARITY,URINE CLEAR; COLOR,URINE STRAW; GLUCOSE,URINE NEG (NEG); NITRITE,URINE NEG (NEG); UROBILINOGEN,URINE 0.2 mg/dL (0.2 mg/dL)
[2016-11-01 00:19] LABS: BACTERIA,URINE 0 /HPF (0-FEW); SQUAMOUS EPITHELIAL CELL,UR OCC /LPF; WBC,URINE OCC /HPF (0-4)
[2016-11-01 00:20] LABS: ALBUMIN 2.9 g/dL (3.4-5.0); ALBUMIN/GLOBULIN RATIO 0.9 (1.0-1.7); CALCIUM 8.3 mg/dL (8.5-10.1); CREATININE 1.6 mg/dL (0.7-1.3); GFR 46.8; TOTAL BILIRUBIN 0.3 mg/dL (0.2-1.0); TOTAL PROTEIN 6.1 g/dL (6.4-8.2)
[2016-11-01 00:26] LABS: BASO # 0.1 x10^3/uL (0.0-0.2); BASO % 3 % (0-3); EOS % 1 % (0-3); HEMATOCRIT 31.7 % (39.0-53.0); HEMOGLOBIN 11.1 g/dL (13.0-17.5); LYMPH # 1.8 x10^3/uL (1.0-4.8); LYMPH % 50 % (24-48); MEAN CORPUSCULAR HEMOGLOBIN 37 pg (25-35); MEAN CORPUSCULAR HGB CONC 35 g/dL (31-37); MEAN CORPUSCULAR VOLUME 107 fL (79-100); MONO # 0.3 x10^3/uL (0.0-1.1); MONO % 8 % (0-9); NEUT # 1.4 x10^3uL (1.8-7.7); NEUT % 39 % (31-73); PLATELET COUNT 206 x10^3/uL (140-400); RED BLOOD COUNT 2.96 x10^6/uL (4.30-5.70); RED CELL DISTRIBUTION WIDTH 14.2 % (11.5-14.5); WHITE BLOOD COUNT 3.7 x10^3/uL (4.0-11.0)
[2016-11-01 00:38] VITALS: BP 105/64
[2016-11-01] MEDS ORDERED: ONDA8TAB12 PO (00:41)
--- NOTE | 2016-11-01 00:42 | PHYS DOC ---
Past History Past Medical History: Anxiety, Constipation, Depression, GERD, High Cholesterol , Hypothyroid, Hypotension, Other Additional Past Medical Histor: Down syndrome Past Surgical History: Appendectomy Alcohol Use: None Drug Use: None Adult General Chief Complaint Chief Complaint: ABDOMINAL PAIN HPI HPI 46-year-old male with a history of Down syndrome lives independently now presents to emergency room complaining of "not feeling well. ". Patient denies chest pain or shortness of breath. He does report some nausea vomiting and diarrhea. No black or bloody stool. Intermittent crampy abdominal pain but no pain presently. Denies fevers chills sweats or shaking chills. Review of Systems Review of Systems Constitutional: Denies fever or chills [] Eyes: Denies change in visual acuity, redness, or eye pain [] HENT: Denies nasal congestion or sore throat [] Respiratory: Denies cough or shortness of breath [] Cardiovascular: No additional information not addressed in HPI [] GI: Denies abdominal pain, nausea, vomiting, bloody stools or diarrhea [] : Denies dysuria or hematuria [] Musculoskeletal: Denies back pain or joint pain [] Integument: Denies rash or skin lesions [] Neurologic: Denies headache, focal weakness or sensory changes [] Endocrine: Denies polyuria or polydipsia [] Current Medications Current Medications Current Medications Medications (Trade) Dose Ordered Sig/Richard Start Time Stop Time Status Last Admin Dose Admin Sodium Chloride 1,000 ml @ 1,000 mls/hr 1X ONCE 10/31/16 23:30 11/01/16 00:29 DC 10/31/16 23:18 1,000 MLS/HR Allergies Allergies Allergies Coded Allergies Type Severity Reaction Last Updated Verified No Known Drug Allergies 08/16/16 No Physical Exam Physical Exam Constitutional: Well developed, well nourished, no acute distress, non-toxic appearance. [] HENT: Normocephalic, atraumatic, bilateral external ears normal, oropharynx moist, no oral exudates, nose normal. [] Eyes: PERRLA, EOMI, conjunctiva normal, no discharge. [] Neck: Normal range of motion, no tenderness, supple, no stridor. [] Cardiovascular:Heart rate regular rhythm, no murmur [] Lungs & Thorax: Bilateral breath sounds clear to auscultation [] Abdomen: Bowel sounds normal, soft, no tenderness, no masses, no pulsatile masses. [] Skin: Warm, dry, no erythema, no rash. [] Back: No tenderness, no CVA tenderness. [] Extremities: No tenderness, no cyanosis, no clubbing, ROM intact, no edema. [] Neurologic: Alert and oriented X 3, normal motor function, normal sensory function, no focal deficits noted. [] Psychologic: Affect normal, judgement normal, mood normal. [] Current Patient Data Lab Results Laboratory Tests Test 10/31/16 23:00 White Blood Count 3.7 x10^3/uL (4.0-11.0) L Red Blood Count 2.96 x10^6/uL (4.30-5.70) L Hemoglobin 11.1 g/dL (13.0-17.5) L Hematocrit 31.7 % (39.0-53.0) L Mean Corpuscular Volume 107 fL (79-100) H Mean Corpuscular Hemoglobin 37 pg (25-35) H Mean Corpuscular Hemoglobin Concent 35 g/dL (31-37) Red Cell Distribution Width 14.2 % (11.5-14.5) Platelet Count 206 x10^3/uL (140-400) Neutrophils (%) (Auto) 39 % (31-73) Lymphocytes (%) (Auto) 50 % (24-48) H Monocytes (%) (Auto) 8 % (0-9) Eosinophils (%) (Auto) 1 % (0-3) Basophils (%) (Auto) 3 % (0-3) Neutrophils # (Auto) 1.4 x10^3uL (1.8-7.7) L Lymphocytes # (Auto) 1.8 x10^3/uL (1.0-4.8) Monocytes # (Auto) 0.3 x10^3/uL (0.0-1.1) Eosinophils # (Auto) 0.0 x10^3/uL (0.0-0.7) Basophils # (Auto) 0.1 x10^3/uL (0.0-0.2) Urine Collection Type Void Urine Color Straw Urine Clarity Clear Urine pH 7.0 Urine Specific [place] 1.010 Urine Protein Neg (NEG-TRACE) Urine Glucose (UA) Neg mg/dL (NEG) Urine Ketones (Stick) Neg mg/dL (NEG) Urine Blood Mod (NEG) Urine Nitrite Neg (NEG) Urine Bilirubin Neg (NEG) Urine Urobilinogen Dipstick 0.2 mg/dL (0.2 mg/dL) Urine Leukocyte Esterase Neg (NEG) Urine RBC 3-5 /HPF (0-2) Urine WBC Occ /HPF (0-4) Urine Squamous Epithelial Cells Occ /LPF Urine Renal Epithelial Cells Occ /LPF Urine Bacteria 0 /HPF (0-FEW) Sodium Level 142 mmol/L (136-145) Potassium Level 4.0 mmol/L (3.5-5.1) Chloride Level 104 mmol/L (98-107) Carbon Dioxide Level 31 mmol/L (21-32) Anion Gap 7 (6-14) Blood Urea Nitrogen 21 mg/dL (8-26) Creatinine 1.6 mg/dL (0.7-1.3) H Estimated GFR (Cockcroft-Gault) 46.8 BUN/Creatinine Ratio 13 (6-20) Glucose Level 86 mg/dL (70-99) Calcium Level 8.3 mg/dL (8.5-10.1) L Total Bilirubin 0.3 mg/dL (0.2-1.0) Aspartate Amino Transferase (AST) 18 U/L (15-37) Alanine Aminotransferase (ALT) 21 U/L (16-63) Alkaline Phosphatase 94 U/L (46-116) Total Protein 6.1 g/dL (6.4-8.2) L Albumin 2.9 g/dL (3.4-5.0) L Albumin/Globulin Ratio 0.9 (1.0-1.7) L Lipase 102 U/L (73-393) EKG EKG [] Radiology/Procedures Radiology/Procedures [] Course & Med Decision Making Course & Med Decision Making Pertinent Labs and Imaging studies reviewed. (See chart for details) Signs and symptoms consistent with gastroenteritis over patient's hemodynamically stable. He is hydrated. His labs are unremarkable. Patient is improved on reexam with no active nausea or vomiting. Vital signs unremarkable. No further workup or treatment indicated at this time. Patient agrees with outpatient follow-up and strict return precautions given [] Dragon Disclaimer Dragon Disclaimer This chart was dictated in whole or in part using Voice Recognition software in a busy, high-work load, and often noisy Emergency Department environment. It may contain unintended and wholly unrecognized errors or omissions. Departure Departure: Impression: Primary Impression: Gastroenteritis Additional Impressions: Abdominal pain Renal insufficiency Disposition: 01 HOME, SELF-CARE Condition: STABLE Referrals: LILY TAVARES MD (PCP) Patient Instructions: Viral Gastroenteritis Additional Instructions: It appears that you have gastroenteritis today. This means U have vomiting and diarrhea which is caused by a viral syndrome. Rest and drink plenty of fluids. Use Zofran under your tongue every 4 hours if needed for nausea and vomiting. Your kidney function is slightly abnormal with a creatinine of 1.6. This is called renal insufficiency. Follow-up with your doctor tomorrow for reevaluation and further workup and treatment as needed. Return immediately for new severe or worsening symptoms Scripts Ondansetron (ZOFRAN ODT) 8 Mg Tab.rapdis 4 MG PO q4 Y for NAUSEA, #14 Prov: DIANA JAY MD 11/01/16 Problem Qualifiers DIANA JAY MD Nov 01, 2016 00:42
--- NOTE | 2016-11-01 06:35 | EKG ---
[address] [address] Test Date: 2016-10-31 Test Time: 22:47:01 Pat Name: JEY VERDUZCO Department: Room: Gender: M Chief Embalmer: PA : 1970 Requested By: DIANA JAY Order Number: [id number] Reading MD: Measurements Intervals [place] Rate: 48 P: 48 [place]: 146 QRS: 39 QRSD: 108 T: 13 QT: 474 QTc: 423 Interpretive Statements SINUS BRADYCARDIA INCOMPLETE RIGHT BUNDLE BRANCH BLOCK QRS(T) CONTOUR ABNORMALITY CANNOT RULE OUT ANTEROSEPTAL MYOCARDIAL DAMAGE RI6.01 Unconfirmed report No previous ECG available for comparison
--- NOTE | 2016-11-01 07:52 | RAD ---
Chest, 2 views, 10/31/2016: History: Bradycardia Comparison is made to a study from 10/10/2016. The heart size and pulmonary vascularity are normal. No pulmonary infiltrates are seen. There is no evidence of pleural fluid. IMPRESSION: No acute cardiopulmonary abnormality is detected.
== END 2016-11-01 00:57 | disposition home or self-care (01) ==
LOC: ER 22:36
DX: K52.9 Noninfective gastroenteritis and colitis, unspecified (principal); N28.9 Disorder of kidney and ureter, unspecified; E03.9 Hypothyroidism, unspecified; E78.00 Pure hypercholesterolemia, unspecified; K21.9 Gastro-esophageal reflux disease without esophagitis; Q90.9 Down syndrome, unspecified; Z90.49 Acquired absence of other specified parts of digestive tract
CPT/HCPCS: 36415; 71020; 80053; 81001; 83690; 85027; 93005; 96360; 99285-25; J7030

== ENCOUNTER 2016-12-21 12:31 | Emergency (ER) | payer MEDICARE, OTHER ==
[~2016-12-21] VITALS: Ht 157.5 cm; Wt 66.9 kg
--- NOTE | 2016-12-21 13:04 | PHYS DOC ---
Past History Past Medical History: Anxiety, Constipation, Depression, GERD, High Cholesterol , Hypothyroid, Hypotension, Other Additional Past Medical Histor: Down syndrome Past Surgical History: Appendectomy Alcohol Use: None Drug Use: None Adult General Chief Complaint Chief Complaint: CHEST PAIN HPI HPI Patient is a 46-year-old male with a history of Down syndrome who is well-known to this emergency department, presents by EMS from home with the complaint of "my heart hurts". Patient states he called 911 himself. States his chest began to hurt and he wants to get it checked out. He denies vomiting. Denies shortness of air. Shortly after arrival, before any treatment, patient stated he felt better and wanted to go home and play video games. Patient is not able to give any further specifics on his complaints today. He does believe he's had this before. Review of Systems Review of Systems Patient has limited ability to give history and was not able to give appropriate answers to review of systems. Allergies Allergies Allergies Coded Allergies Type Severity Reaction Last Updated Verified No Known Drug Allergies 08/16/16 No Physical Exam Physical Exam Constitutional: Well developed, well nourished, no acute distress, non-toxic appearance. Alert, appears to be at his baseline, no acute distress. Sinus bradycardia on the heart monitor which appears to be his baseline. HENT: Normocephalic, atraumatic, bilateral external ears normal, nose normal. [ ] Eyes: conjunctiva normal, no discharge. [] Neck: Normal range of motion, no stridor. [] Cardiovascular:Heart rate regular rhythm, no murmur [] Lungs & Thorax: Bilateral breath sounds clear to auscultation [] Abdomen: Bowel sounds normal, soft, no masses, no pulsatile masses. Mild epigastric and right upper quadrant tenderness. No right lower quadrant or other abdominal tenderness. Nondistended. Skin: Warm, dry, no erythema, no rash. [] Extremities: No tenderness, no cyanosis, no clubbing, ROM intact, no edema. [] Neurologic: Alert and oriented X 3, normal motor function, normal sensory function, no focal deficits noted. [] EKG EKG 12-lead EKG read by me. Sinus bradycardia. Heart rate 44. There are nonspecific ST changes. EKG was compared to previous EKG dated 10/31/16, and these findings are unchanged from that previous EKG. No STEMI. 1250 [] Radiology/Procedures Radiology/Procedures Right upper quadrant ultrasound read by the radiologist, unremarkable. [] Course & Med Decision Making Course & Med Decision Making Pertinent Labs and Imaging studies reviewed. (See chart for details) 46-year-old male who has Down syndrome presents by EMS from home with the complaint of chest pain. His history is vague. The chest pain resolved without treatment. Initial EKG compared to previous EKG is unchanged. Right upper quadrant ultrasound negative for gallbladder etiology. Labs unremarkable. The patient rested comfortably, visited with the ED staff and took a nap while here. I don't believe there is any indication to admit him for further evaluation. He wanted to go home and was released in stable and improved condition. [] Dragon Disclaimer Dragon Disclaimer This chart was dictated in whole or in part using Voice Recognition software in a busy, high-work load, and often noisy Emergency Department environment. It may contain unintended and wholly unrecognized errors or omissions. Departure Departure: Impression: Primary Impression: Chest pain Disposition: 01 HOME, SELF-CARE Condition: STABLE Referrals: LILY TAVARES MD (PCP) Patient Instructions: Chest Pain (Nonspecific), [id number] Additional Instructions: Follow-up with your doctor if you keep having these symptoms. Return to emergency if they get worse. JOSEPH CORREA MD Dec 21, 2016 13:04
--- NOTE | 2016-12-21 13:20 | EKG ---
[address] [address] Test Date: 2016-12-21 Test Time: 12:42:51 Pat Name: JEY VERDUZCO Department: Room: Gender: M Video Conference Specialist: : 1970 Requested By: JOSEPH CORREA Order Number: [id number] Reading MD: Measurements Intervals [place] Rate: 44 P: 42 [place]: 136 QRS: 51 QRSD: 98 T: 31 QT: 444 QTc: 383 Interpretive Statements SINUS BRADYCARDIA R-S TRANSITION ZONE IN V LEADS DISPLACED TO THE RIGHT INCOMPLETE RIGHT BUNDLE BRANCH BLOCK QRS(T) CONTOUR ABNORMALITY CANNOT RULE OUT INFERIOR MYOCARDIAL DAMAGE RI6.01 Unconfirmed report No previous ECG available for comparison
[2016-12-21 13:27] VITALS: BP 92/55
[2016-12-21 14:13] LABS: BASO # 0.1 x10^3/uL (0.0-0.2); BASO % 2 % (0-3); EOS % 1 % (0-3); HEMATOCRIT 33.9 % (39.0-53.0); HEMOGLOBIN 11.6 g/dL (13.0-17.5); LYMPH # 1.5 x10^3/uL (1.0-4.8); LYMPH % 34 % (24-48); MEAN CORPUSCULAR HEMOGLOBIN 37 pg (25-35); MEAN CORPUSCULAR HGB CONC 34 g/dL (31-37); MEAN CORPUSCULAR VOLUME 108 fL (79-100); MONO # 0.4 x10^3/uL (0.0-1.1); MONO % 10 % (0-9); NEUT # 2.3 x10^3uL (1.8-7.7); NEUT % 54 % (31-73); PLATELET COUNT 225 x10^3/uL (140-400); RED BLOOD COUNT 3.14 x10^6/uL (4.30-5.70); RED CELL DISTRIBUTION WIDTH 13.7 % (11.5-14.5); WHITE BLOOD COUNT 4.3 x10^3/uL (4.0-11.0)
--- NOTE | 2016-12-21 14:34 | RAD ---
Indication: Right upper quadrant pain Technique: Ultrasound of the abdomen was performed. No comparison is available. Findings: Pancreas is mostly obscured by bowel gas. IVC is patent. Aorta is not visualized proximally, the remainder of the aorta is within normal limits. Liver is normal in size and increased in echogenicity. Gallbladder is negative. Common bile duct is within normal limits at 3 mm. Right kidney is without hydronephrosis or mass. Impression: Mild fatty infiltration of the liver. No acute abdominal findings.
[2016-12-21 14:57] LABS: ALBUMIN 2.8 g/dL (3.4-5.0); ALBUMIN/GLOBULIN RATIO 0.8 (1.0-1.7); ALK PHOS 70 U/L (46-116); ALT (SGPT) 12 U/L (16-63); ANION GAP 0 (6-14); AST (SGOT) 15 U/L (15-37); BLOOD UREA NITROGEN 13 mg/dL (8-26); BUN/CREATININE RATIO 10 (6-20); CALCIUM 8.4 mg/dL (8.5-10.1); CARBON DIOXIDE 34 mmol/L (21-32); CHLORIDE 107 mmol/L (98-107); CREATINE KINASE 37 U/L (39-308); CREATININE 1.3 mg/dL (0.7-1.3); GFR 59.4; GLUCOSE 85 mg/dL (70-99); LIPASE 107 U/L (73-393); POTASSIUM 4.5 mmol/L (3.5-5.1); SODIUM 141 mmol/L (136-145); TOTAL BILIRUBIN 0.2 mg/dL (0.2-1.0); TOTAL PROTEIN 6.1 g/dL (6.4-8.2)
== END 2016-12-21 16:16 | disposition home or self-care (01) ==
LOC: ER 12:31
DX: R07.9 Chest pain, unspecified (principal); E03.9 Hypothyroidism, unspecified; K21.9 Gastro-esophageal reflux disease without esophagitis; F41.9 Anxiety disorder, unspecified; Q90.9 Down syndrome, unspecified; E78.00 Pure hypercholesterolemia, unspecified
CPT/HCPCS: 36415; 76705; 80053; 82553; 83690; 84484; 85025; 93005; 99285-25

== ENCOUNTER 2017-02-22 19:23 | Emergency (ER) | payer MEDICARE, OTHER ==
[~2017-02-22] VITALS: Ht 157.5 cm; Wt 57.6 kg
--- NOTE | 2017-02-22 20:15 | ED.ADGEN ---
Past History Past Medical History: Anxiety, Constipation, Depression, GERD, High Cholesterol , Hypothyroid, Hypotension, Other Additional Past Medical Histor: Down syndrome Past Surgical History: Appendectomy Alcohol Use: None Drug Use: None Adult General Chief Complaint Chief Complaint " I hurt.." " My stomach..." " I fell on my shoulder..." HPI HPI Patient is a 46 year old male who presents with with above hx and complaints. Patient has been seen before in the department frequently for his abdomen complaints. Has been seen many times for constipation as well as complaints of diarrhea after his constipation has been treated. Patient denies any bad food intake. Patient has been eating today. No recent travel. No ill contacts. Patient has had previous appendectomy. Patient states he did fall today and injuries right shoulder. Patient is a somewhat poor historian and used to live in a intermediate for care but was unable to get along with the other residents and now lives by himself. Patient frequently eats gas station food since this location near his residence. Patient also complaining of right shoulder pain. Distal neurovascular intact. No obvious contusion. Fair range of motion. Some pain on isolation and stressing rotator cuff elements. Review of Systems Review of Systems Constitutional: Denies fever or chills [] Eyes: Denies change in visual acuity, redness, or eye pain [] HENT: Denies nasal congestion or sore throat [] Respiratory: Denies cough or shortness of breath [] Cardiovascular: No additional information not addressed in HPI [] GI: Complaints of abdominal pain, nausea, and constipation. Denies vomiting, bloody stools or diarrhea [] : Denies dysuria or hematuria [] Musculoskeletal: Denies back pain or joint pain []complaints of right shoulder pain Integument: Denies rash or skin lesions [] Neurologic: Denies headache, focal weakness or sensory changes [] Endocrine: Denies polyuria or polydipsia [] Family History Family History Noncontributory- patient in the past did live with his brother but his brother moved away and patient has poor social support Current Medications Current Medications Current Medications Medications (Trade) Dose Ordered Sig/Richard Start Time Stop Time Status Last Admin Dose Admin Famotidine (Pepcid) 20 mg 1X ONCE 02/22/17 20:30 02/22/17 20:31 DC 02/22/17 20:30 20 MG Ketorolac Tromethamine (Toradol) 30 mg 1X ONCE 02/22/17 21:45 02/22/17 22:03 DC 02/22/17 21:45 30 MG Magnesium Citrate (Citroma) 296 ml 1X ONCE 02/22/17 21:45 02/22/17 22:03 DC 02/22/17 21:45 296 ML Ondansetron HCl (Zofran) 4 mg 1X ONCE 02/22/17 20:30 02/22/17 20:31 DC 02/22/17 20:30 4 MG Sodium Chloride 1,000 ml @ 1,000 mls/hr Q1H 02/22/17 20:16 02/22/17 21:15 DC 02/22/17 21:00 1,000 MLS/HR See nursing for home medications Allergies Allergies Allergies Coded Allergies Type Severity Reaction Last Updated Verified No Known Drug Allergies 08/16/16 No Physical Exam Physical Exam Constitutional: well nourished, no acute distress, non-toxic appearance. [] HENT: Normocephalic, atraumatic, bilateral external ears normal, oropharynx moist, no oral exudates, nose normal. [] Eyes: PERRLA, EOMI, conjunctiva normal, no discharge. [] Neck: Normal range of motion, no tenderness, supple, no stridor. [] Cardiovascular:Heart rate regular rhythm, no murmur [] Lungs & Thorax: Bilateral breath sounds equal at apexes auscultation [] Abdomen: Bowel sounds hyperactive,, soft, some generalized tenderness, distention, no masses, no pulsatile masses. Old appendectomy scar Back: No tenderness, no CVA tenderness. [] Extremities: No tenderness, no cyanosis, no clubbing, ROM intact, no edema. [] Right shoulder pain with Range of motion Neurologic: Alert and oriented X 3, normal motor function, normal sensory function, no focal deficits noted. [] Psychologic: Affect flat, judgement lacks insight, processes concrete, mood normal. []Patient does have some developmental mental deficits Current Patient Data Lab Results Laboratory Tests Test 02/22/17 19:33 02/22/17 20:50 Urine Collection Type Unknown Urine Color Yellow Urine Clarity Clear Urine pH 6.5 Urine Specific [place] <=1.005 Urine Protein Neg (NEG-TRACE) Urine Glucose (UA) Neg mg/dL (NEG) Urine Ketones (Stick) Neg mg/dL (NEG) Urine Blood Trace (NEG) Urine Nitrite Neg (NEG) Urine Bilirubin Neg (NEG) Urine Urobilinogen Dipstick 1 mg/dL (0.2 mg/dL) Urine Leukocyte Esterase Neg (NEG) Urine RBC 0 /HPF (0-2) Urine WBC 0 /HPF (0-4) Urine Squamous Epithelial Cells None /LPF Urine Bacteria 0 /HPF (0-FEW) Urine Opiates Screen Neg (NEG) Urine Methadone Screen Neg (NEG) Urine Barbiturates Neg (NEG) Urine Phencyclidine Screen Neg (NEG) Urine Amphetamine/Methamphetamine Neg (NEG) Urine Benzodiazepines Screen Neg (NEG) Urine Cocaine Screen Neg (NEG) Urine Cannabinoids Screen Neg (NEG) Urine Ethyl Alcohol Neg (NEG) White Blood Count 4.6 x10^3/uL (4.0-11.0) Red Blood Count 3.14 x10^6/uL (4.30-5.70) L Hemoglobin 11.9 g/dL (13.0-17.5) L Hematocrit 33.9 % (39.0-53.0) L Mean Corpuscular Volume 108 fL (79-100) H Mean Corpuscular Hemoglobin 38 pg (25-35) H Mean Corpuscular Hemoglobin Concent 35 g/dL (31-37) Red Cell Distribution Width 13.9 % (11.5-14.5) Platelet Count 227 x10^3/uL (140-400) Neutrophils (%) (Auto) 65 % (31-73) Lymphocytes (%) (Auto) 25 % (24-48) Monocytes (%) (Auto) 9 % (0-9) Eosinophils (%) (Auto) 1 % (0-3) Basophils (%) (Auto) 1 % (0-3) Neutrophils # (Auto) 3.0 x10^3uL (1.8-7.7) Lymphocytes # (Auto) 1.2 x10^3/uL (1.0-4.8) Monocytes # (Auto) 0.4 x10^3/uL (0.0-1.1) Eosinophils # (Auto) 0.0 x10^3/uL (0.0-0.7) Basophils # (Auto) 0.0 x10^3/uL (0.0-0.2) Prothrombin Time 10.5 SEC (9.4-11.4) Prothrombin Time INR 1.0 (0.9-1.1) PTT 23 SEC (23-33) Sodium Level 142 mmol/L (136-145) Potassium Level 3.7 mmol/L (3.5-5.1) Chloride Level 104 mmol/L (98-107) Carbon Dioxide Level 33 mmol/L (21-32) H Anion Gap 5 (6-14) L Blood Urea Nitrogen 4 mg/dL (8-26) L Creatinine 1.2 mg/dL (0.7-1.3) Estimated GFR (Cockcroft-Gault) 65.2 BUN/Creatinine Ratio 3 (6-20) L Glucose Level 78 mg/dL (70-99) Calcium Level 8.4 mg/dL (8.5-10.1) L Total Bilirubin 0.4 mg/dL (0.2-1.0) Aspartate Amino Transferase (AST) 26 U/L (15-37) Alanine Aminotransferase (ALT) 20 U/L (16-63) Alkaline Phosphatase 57 U/L (46-116) Troponin I Quantitative < 0.017 ng/mL (0-0.055) Total Protein 6.5 g/dL (6.4-8.2) Albumin 3.1 g/dL (3.4-5.0) L Albumin/Globulin Ratio 0.9 (1.0-1.7) L Lipase 99 U/L (73-393) EKG EKG My interpretation EKG shows a irregular rhythm at a rate bradycardia rate of 53. There is bimodal P-wave's. There is incomplete right bundle branch block. But no findings acute STEMI.[] Radiology/Procedures Radiology/Procedures My interpretation of x-ray shows no obvious fracture shoulder on chest view area no free air in the diaphragm. Increased stool. Nonobstructive pattern.[] Course & Med Decision Making Course & Med Decision Making Pertinent Labs and Imaging studies reviewed. (See chart for details) Patient's stay on a clear fluid diet only. No solid no milk products for 2 days. Patient to consume a bottle of mag citrate. Patient may take Tylenol and ibuprofen for pain. Patient follow-up primary care. Patient told to expect some diarrhea and cramping [] Final Impression Final Impression 1. Abdomen pain 2. Shoulder pain[] 3. Constipation 4. Anemia- with macrocytic hyperchromic indices 5. Right bundle-branch block-bradycardia Problems: Dragon Disclaimer Dragon Disclaimer This electronic medical record was generated, in whole or in part, using a voice recognition dictation system. AL HUMPHRIES MD Feb 22, 2017 20:15
[2017-02-22] MEDS ORDERED: IV NORMAL SALINE 1,000ML 1,000 ML IV SCH (20:16)
[2017-02-22] MEDS ORDERED: FAMOTIDINE 20 MG/2 ML VIAL IVP ONE (20:30)
[2017-02-22] MEDS ORDERED: ONDANSETRON PF 4 MG/2 ML VIAL. IV ONE (20:30)
[2017-02-22 21:17] LABS: BASO % 1 % (0-3); EOS % 1 % (0-3); HEMATOCRIT 33.9 % (39.0-53.0); HEMOGLOBIN 11.9 g/dL (13.0-17.5); LYMPH # 1.2 x10^3/uL (1.0-4.8); LYMPH % 25 % (24-48); MEAN CORPUSCULAR HEMOGLOBIN 38 pg (25-35); MEAN CORPUSCULAR HGB CONC 35 g/dL (31-37); MEAN CORPUSCULAR VOLUME 108 fL (79-100); MONO # 0.4 x10^3/uL (0.0-1.1); MONO % 9 % (0-9); NEUT % 65 % (31-73); PLATELET COUNT 227 x10^3/uL (140-400); RED BLOOD COUNT 3.14 x10^6/uL (4.30-5.70); RED CELL DISTRIBUTION WIDTH 13.9 % (11.5-14.5); WHITE BLOOD COUNT 4.6 x10^3/uL (4.0-11.0)
[2017-02-22 21:17] LABS: BILIRUBIN,URINE NEG (NEG); CLARITY,URINE CLEAR; COLOR,URINE YELLOW; GLUCOSE,URINE NEG (NEG); NITRITE,URINE NEG (NEG); UROBILINOGEN,URINE 1 mg/dL (0.2 mg/dL)
[2017-02-22 21:18] LABS: BACTERIA,URINE 0 /HPF (0-FEW); RBC,URINE 0 /HPF (0-2); WBC,URINE 0 /HPF (0-4)
[2017-02-22 21:28] LABS: ALBUMIN 3.1 g/dL (3.4-5.0); ALBUMIN/GLOBULIN RATIO 0.9 (1.0-1.7); CALCIUM 8.4 mg/dL (8.5-10.1); CREATININE 1.2 mg/dL (0.7-1.3); GFR 65.2; TOTAL BILIRUBIN 0.4 mg/dL (0.2-1.0); TOTAL PROTEIN 6.5 g/dL (6.4-8.2)
[2017-02-22 21:29] LABS: POTASSIUM 3.7 mmol/L (3.5-5.1)
[2017-02-22] MEDS ORDERED: MAGNESIUM CITRATE 296 ML SOLUTION. PO ONE (21:45)
[2017-02-22] MEDS ORDERED: KETOROLAC 30 MG/ML VIAL. IV ONE (21:45)
[2017-02-22 21:54] LABS: AMPHETAMINE/METHAMPHETAMINE NEG (NEG); BARBITURATES NEG (NEG); BENZODIAZEPINES NEG (NEG); CANNABINOIDS NEG (NEG); COCAINE NEG (NEG); METHADONE NEG (NEG); OPIATES NEG (NEG); PHENCYCLIDINE NEG (NEG)
[2017-02-22 21:59] VITALS: BP 120/76
--- NOTE | 2017-02-23 06:03 | EKG ---
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
--- NOTE | 2017-02-23 09:00 | RAD ---
INDICATION: Abdominal pain. COMPARISON: 10/10/2016 IMPRESSION: 4 views of chest and abdomen obtained. No focal airspace consolidation to suggest pneumonia. Cardiac silhouette is unremarkable. No intraperitoneal free air. Air scattered throughout the large and small bowel in a nonspecific pattern.
== END 2017-02-22 22:07 | disposition home or self-care (01) ==
LOC: ER 19:23
DX: K59.00 Constipation, unspecified (principal); M25.511 Pain in right shoulder; R10.84 Generalized abdominal pain; D53.9 Nutritional anemia, unspecified; D50.9 Iron deficiency anemia, unspecified; R00.1 Bradycardia, unspecified; K21.9 Gastro-esophageal reflux disease without esophagitis; E78.00 Pure hypercholesterolemia, unspecified; E03.9 Hypothyroidism, unspecified; I45.10 Unspecified right bundle-branch block; Q90.9 Down syndrome, unspecified
CPT/HCPCS: 36415; 74022; 80053; 80307; 81001; 83690; 84484; 85025; 85610; 85730; 93005; 96361; 96374; 96375; 99285; J1885; J2405; S0028; G0479; J7030

== ENCOUNTER 2017-03-29 04:55 | Emergency (ER) | payer MEDICARE, OTHER ==
[~2017-03-29] VITALS: Ht 157.5 cm; Wt 57.6 kg
--- NOTE | 2017-03-29 04:57 | ED.ADGEN ---
Past History Past Medical History: Anxiety, Constipation, Depression, GERD, High Cholesterol , Hypothyroid, Hypotension, Other Additional Past Medical Histor: Down syndrome Past Surgical History: Appendectomy Alcohol Use: None Drug Use: None Adult General Chief Complaint Chief Complaint " My stomach hurts..." HPI HPI Patient is a 46 year old male who presents with above hx and complaints. Denies trauma. Denies bad food. Has not followed with his primary. Denies vomiting. States normal stool today. Pt. denies ill contacts. Review of Systems Review of Systems Constitutional: Denies fever or chills [] Eyes: Denies change in visual acuity, redness, or eye pain [] HENT: Denies nasal congestion or sore throat [] Respiratory: Denies cough or shortness of breath [] Cardiovascular: No additional information not addressed in HPI [] GI: complaints abdominal pain, nausea, . denies vomiting, bloody stools or diarrhea [] : Denies dysuria or hematuria [] Musculoskeletal: Denies back pain or joint pain [] Integument: Denies rash or skin lesions [] Neurologic: Denies headache, focal weakness or sensory changes [] Endocrine: Denies polyuria or polydipsia [] All other systems were reviewed and found to be within normal limits, except as documented in this note. Family History Family History Non-contributory Current Medications Current Medications Current Medications Medications (Trade) Dose Ordered Sig/Richard Start Time Stop Time Status Last Admin Dose Admin Acetaminophen (Tylenol) 1,000 mg 1X ONCE 03/29/17 05:00 03/29/17 05:13 DC 03/29/17 05:06 1,000 MG Famotidine (Pepcid) 20 mg 1X ONCE 03/29/17 05:00 03/29/17 05:13 DC 03/29/17 05:06 20 MG Magnesium Hydroxide (Milk Of Magnesia) 2,400 mg 1X ONCE 03/29/17 05:00 03/29/17 05:13 DC 03/29/17 05:06 2,400 MG Ondansetron HCl (Zofran Odt) 8 mg 1X ONCE 03/29/17 05:15 03/29/17 05:16 DC 03/29/17 05:10 8 MG Allergies Allergies Allergies Coded Allergies Type Severity Reaction Last Updated Verified No Known Drug Allergies 08/16/16 No Physical Exam Physical Exam Constitutional: , well nourished, no acute distress, non-toxic appearance. [] HENT: Normocephalic, atraumatic, bilateral external ears normal, oropharynx moist, no oral exudates, nose normal. [] Eyes: PERRLA, EOMI, conjunctiva normal, no discharge. [] Neck: Normal range of motion, no tenderness, supple, no stridor. [] Cardiovascular:Heart rate regular rhythm, no murmur [] Lungs & Thorax: Bilateral breath sounds equal at apex on auscultation [] Abdomen: Bowel sounds all four quadrant, soft, periumbilical tenderness, no masses, no pulsatile masses. No rebound. No heel tap. Old surgical scar. Skin: Warm, dry, no erythema, no rash. [] Back: No tenderness, no CVA tenderness. [] Extremities: No tenderness, no cyanosis, no clubbing, ROM intact, no edema. [] Neurologic: Alert and oriented X 3, normal motor function, normal sensory function, no focal deficits noted. [] Psychologic: Affect normal, judgement MR, mood normal. [] Current Patient Data Vital Signs Vital Signs Date Time Temp Pulse Resp B/P (MAP) Pulse Ox O2 Delivery O2 Flow Rate FiO2 03/29/17 04:59 97.6 62 16 97 Room Air EKG EKG [] Radiology/Procedures Radiology/Procedures [] Course & Med Decision Making Course & Med Decision Making Pertinent Labs and Imaging studies reviewed. (See chart for details). Pt. reports relief of symptom at time of discharge. Stay on clear fluid diet x 48 hrs. No solids or milk products. Allow bowel rest. Take Zantac 150 mg twice a day. Must follow up with primary. [] Final Impression Final Impression 1. Abdomen Pain 2. Hx GERD 3. Hx. of Over eating and consumption of soft drinks.[] Problems: Dragon Disclaimer Dragon Disclaimer This electronic medical record was generated, in whole or in part, using a voice recognition dictation system. AL HUMPHRIES MD Mar 29, 2017 04:57
[2017-03-29 04:59] VITALS: BP 99/59
[2017-03-29] MEDS ORDERED: ACETAMINOPHEN 500 MG TABLET PO ONE ×2 (05:00→05:04)
[2017-03-29] MEDS ORDERED: FAMOTIDINE 20 MG TABLET PO ONE (05:00)
[2017-03-29] MEDS ORDERED: MAGNESIUM HYDROXIDE 2,400 MG/30 ML ORAL.SUSP. PO ONE (05:00)
[2017-03-29] MEDS ORDERED: RANI150T6 PO (05:02)
[2017-03-29] MEDS ORDERED: FAMOTIDINE 20 MG TABLET ONE (05:04)
[2017-03-29] MEDS ORDERED: MAGNESIUM HYDROXIDE 2,400 MG/30 ML ORAL.SUSP. ONE (05:04)
[2017-03-29] MEDS ORDERED: ONDANSETRON ODT 4 MG TAB.RAPDIS ONE (05:10)
[2017-03-29] MEDS ORDERED: ONDANSETRON ODT 4 MG TAB.RAPDIS PO ONE (05:15)
== END 2017-03-29 05:24 | disposition home or self-care (01) ==
LOC: ER 04:55
DX: R10.9 Unspecified abdominal pain (principal); K21.9 Gastro-esophageal reflux disease without esophagitis; E03.9 Hypothyroidism, unspecified; E78.00 Pure hypercholesterolemia, unspecified; F41.9 Anxiety disorder, unspecified; F32.9 Major depressive disorder, single episode, unspecified; Q90.9 Down syndrome, unspecified; Z90.49 Acquired absence of other specified parts of digestive tract
CPT/HCPCS: 99284; Q0162

== ENCOUNTER 2017-04-02 07:50 | Emergency (ER) | payer MEDICARE, OTHER ==
[~2017-04-02] VITALS: Ht 157.5 cm; Wt 57.6 kg
[2017-04-02] MEDS ORDERED: IV NORMAL SALINE 1,000ML 1,000 ML IV SCH (07:57)
--- NOTE | 2017-04-02 08:04 | PHYS DOC ---
Past History Past Medical History: Anxiety, Constipation, Depression, GERD, High Cholesterol , Hypothyroid, Hypotension, Other Additional Past Medical Histor: Down syndrome Past Surgical History: Appendectomy Alcohol Use: None Drug Use: None Adult General Chief Complaint Chief Complaint: ABDOMINAL PAIN HPI HPI Patient is a 46 year old Male who presents with abdominal pain. He states it started last night he's vomited several times. He denies any blood in his vomit. He states his kidneys are hurting. He states he drank 12 sodas last night and this started his attack. Denies any fevers chills chest pain or shortness of breath. He did have a few episodes of diarrhea overnight. Review of Systems Review of Systems Constitutional: Denies fever or chills [] Eyes: Denies change in visual acuity, redness, or eye pain [] HENT: Denies nasal congestion or sore throat [] Respiratory: Denies cough or shortness of breath [] Cardiovascular: No additional information not addressed in HPI [] GI: Positive abdominal pain, nausea, vomiting, Denies bloody stools or diarrhea [] : Denies dysuria or hematuria [] Musculoskeletal: Denies back pain or joint pain [] Integument: Denies rash or skin lesions [] Neurologic: Denies headache, focal weakness or sensory changes [] Endocrine: Denies polyuria or polydipsia [] All other systems were reviewed and found to be within normal limits, except as documented in this note. Allergies Allergies Allergies Coded Allergies Type Severity Reaction Last Updated Verified No Known Drug Allergies 08/16/16 No Physical Exam Physical Exam Constitutional: Well developed, well nourished, no acute distress, non-toxic appearance. [] HENT: Normocephalic, atraumatic, bilateral external ears normal, oropharynx moist, no oral exudates, nose normal. [] Eyes: PERRLA, EOMI, conjunctiva normal, no discharge. [] Neck: Normal range of motion, no tenderness, supple, no stridor. [] Cardiovascular:Heart rate regular rhythm, no murmur [] Lungs & Thorax: Bilateral breath sounds clear to auscultation [] Abdomen: Bowel sounds high-pitched, soft, tender to palpation over the left abdomen, no rebound or guarding, no masses, no pulsatile masses. [] Skin: Warm, dry, no erythema, no rash. [] Back: No tenderness, no CVA tenderness. [] Extremities: No tenderness, no cyanosis, no clubbing, ROM intact, no edema. [] Neurologic: Alert and oriented X 3, normal motor function, normal sensory function, no focal deficits noted. [] Psychologic: Affect normal, judgement normal, mood normal. [] Current Patient Data Vital Signs Vital Signs Date Time Temp Pulse Resp B/P (MAP) Pulse Ox O2 Delivery O2 Flow Rate FiO2 04/02/17 07:50 97.7 54 18 100 Room Air EKG EKG [] Radiology/Procedures Radiology/Procedures [address] [address] IMAGING REPORT Signed PATIENT: JEY VERDUZCO ACCOUNT: [id number] : 1970 LOCATION: ER AGE: 46 SEX: M EXAM STATUS: REG ER ORD. PHYSICIAN: STEPHANIE LIRIANO MD REASON: abd pain PROCEDURE: ACUTE ABDOMEN SERIES Acute abdomen series with chest, 3 views, 04/02/2017: History: Abdominal pain Gas is present in large and small bowel in a nonspecific pattern. No free air is seen in the abdomen. There is no evidence of organomegaly. Lower pelvic calcifications are probably phleboliths. There are mild scattered degenerative changes in the spine. The heart size is normal. The lungs are clear. There is no evidence of pleural fluid. IMPRESSION: No acute abdominal abnormality is detected. DICTATED AND SIGNED BY: MORALES SHELDON MD DATE: 04/02/17 0813 CC: STEPHANIE LIRIANO MD; LILY TAVARES MD ~ Impressions: Abdominal pain Down syndrome Course & Med Decision Making Course & Med Decision Making Pertinent Labs and Imaging studies reviewed. (See chart for details) Abdominal series did not show any abnormalities. He has a lot of stool in his colon. He's had 2 bowel movements in the ER. He was offered a GI cocktail. His labs, urinalysis are all nonacute. His discomfort could eat from poor eating habits since he consumed a 12 pack of soda last night and eats junk food most the time. He is being discharged home with return precautions. He is instructed he needs a follow-up with his primary care physician. He has H2 blockers and was prescribed to him previously. He is agreeable to the plan being discharged in stable condition at this time. Dragon Disclaimer Dragon Disclaimer This electronic medical record was generated, in whole or in part, using a voice recognition dictation system. Departure Departure: Impression: Primary Impression: Abdominal pain Disposition: HOME, SELF-CARE Condition: STABLE Referrals: LILY TAVARES MD (PCP) Patient Instructions: Abdominal Pain (Nonspecific) Additional Instructions: You were seen in the ER for your abdominal pain and we did not find any reasons for your pain or discomfort. He did have 2 bowel movements a in the ER. Your being discharged home. You received a GI cocktail. Please try to avoid greasy foods, milk and other foods that can irritate your stomach like a pop. You need to follow-up with your primary care physician. Please see them within the next 1 -2 days. Return back to ER for severe pain, uncontrolled nausea vomiting, fevers chills, troubles breathing, or any other concerns. STEPHANIE LIRIANO MD Apr 02, 2017 08:04
--- NOTE | 2017-04-02 08:17 | RAD ---
Acute abdomen series with chest, 3 views, 04/02/2017: History: Abdominal pain Gas is present in large and small bowel in a nonspecific pattern. No free air is seen in the abdomen. There is no evidence of organomegaly. Lower pelvic calcifications are probably phleboliths. There are mild scattered degenerative changes in the spine. The heart size is normal. The lungs are clear. There is no evidence of pleural fluid. IMPRESSION: No acute abdominal abnormality is detected.
[2017-04-02 08:28] LABS: BASO # 0.1 x10^3/uL (0.0-0.2); BASO % 2 % (0-3); EOS # 0.1 x10^3/uL (0.0-0.7); EOS % 1 % (0-3); HEMATOCRIT 37.3 % (39.0-53.0); HEMOGLOBIN 12.9 g/dL (13.0-17.5); LYMPH # 1.6 x10^3/uL (1.0-4.8); LYMPH % 27 % (24-48); MEAN CORPUSCULAR HEMOGLOBIN 38 pg (25-35); MEAN CORPUSCULAR HGB CONC 35 g/dL (31-37); MEAN CORPUSCULAR VOLUME 109 fL (79-100); MONO # 0.5 x10^3/uL (0.0-1.1); MONO % 9 % (0-9); NEUT # 3.6 x10^3uL (1.8-7.7); NEUT % 62 % (31-73); PLATELET COUNT 233 x10^3/uL (140-400); RED BLOOD COUNT 3.41 x10^6/uL (4.30-5.70); RED CELL DISTRIBUTION WIDTH 14.1 % (11.5-14.5); WHITE BLOOD COUNT 5.9 x10^3/uL (4.0-11.0)
[2017-04-02 08:43] LABS: BILIRUBIN,URINE NEG (NEG); CLARITY,URINE CLEAR; COLOR,URINE STRAW; GLUCOSE,URINE NEG (NEG); NITRITE,URINE NEG (NEG); UROBILINOGEN,URINE 0.2 mg/dL (0.2 mg/dL)
[2017-04-02 08:44] LABS: BACTERIA,URINE 0 /HPF (0-FEW); RBC,URINE 0 /HPF (0-2); WBC,URINE 0 /HPF (0-4)
[2017-04-02 08:45] LABS: ALBUMIN 3.1 g/dL (3.4-5.0); CALCIUM 8.7 mg/dL (8.5-10.1); CREATININE 1.4 mg/dL (0.7-1.3); DIRECT BILIRUBIN 0.1 mg/dL (0.0-0.2); GFR 54.6; POTASSIUM 4.4 mmol/L (3.5-5.1); TOTAL BILIRUBIN 0.2 mg/dL (0.2-1.0); TOTAL PROTEIN 6.7 g/dL (6.4-8.2)
[2017-04-02 08:45] LABS: BARBITURATES NEG (NEG); BENZODIAZEPINES NEG (NEG); CANNABINOIDS NEG (NEG); COCAINE NEG (NEG); METHADONE NEG (NEG); OPIATES NEG (NEG); PHENCYCLIDINE NEG (NEG)
[2017-04-02 08:46] LABS: AMPHETAMINE/METHAMPHETAMINE NEG (NEG)
[2017-04-02] MEDS ORDERED: LIDO:MAALOX 1:1 20 ML SINGLE DOSE PO ONE (09:30)
[2017-04-02 10:10] VITALS: BP 119/49
== END 2017-04-02 10:10 | disposition home or self-care (01) ==
LOC: ER 07:50
DX: R10.9 Unspecified abdominal pain (principal); R11.2 Nausea with vomiting, unspecified; K21.9 Gastro-esophageal reflux disease without esophagitis; E78.00 Pure hypercholesterolemia, unspecified; E03.9 Hypothyroidism, unspecified; F32.9 Major depressive disorder, single episode, unspecified; F41.9 Anxiety disorder, unspecified; Q90.9 Down syndrome, unspecified; Z90.49 Acquired absence of other specified parts of digestive tract
CPT/HCPCS: 36415; 74022; 80048; 80076; 80307; 81001; 82550; 83690; 85025; 85610; 85730; 96360; 96361; 99285-25; G0479; J7030

== ENCOUNTER 2017-04-04 23:55 | Emergency (ER) | payer MEDICARE, OTHER ==
[~2017-04-04] VITALS: Ht 157.5 cm; Wt 57.0 kg
[2017-04-05] VITALS: BP 101/51
[2017-04-05 00:21] LABS: BASO # 0.2 x10^3/uL (0.0-0.2); BASO % 4 % (0-3); EOS # 0.1 x10^3/uL (0.0-0.7); EOS % 1 % (0-3); HEMATOCRIT 36.2 % (39.0-53.0); HEMOGLOBIN 12.9 g/dL (13.0-17.5); LYMPH # 1.9 x10^3/uL (1.0-4.8); LYMPH % 38 % (24-48); MEAN CORPUSCULAR HEMOGLOBIN 38 pg (25-35); MEAN CORPUSCULAR HGB CONC 36 g/dL (31-37); MEAN CORPUSCULAR VOLUME 108 fL (79-100); MONO # 0.5 x10^3/uL (0.0-1.1); MONO % 10 % (0-9); NEUT # 2.4 x10^3uL (1.8-7.7); NEUT % 47 % (31-73); PLATELET COUNT 223 x10^3/uL (140-400); RED BLOOD COUNT 3.36 x10^6/uL (4.30-5.70); RED CELL DISTRIBUTION WIDTH 14.1 % (11.5-14.5)
[2017-04-05 00:33] LABS: CALCIUM 8.6 mg/dL (8.5-10.1); CREATININE 1.3 mg/dL (0.7-1.3); DIRECT BILIRUBIN 0.1 mg/dL (0.0-0.2); GFR 59.4; POTASSIUM 4.3 mmol/L (3.5-5.1); TOTAL BILIRUBIN 0.3 mg/dL (0.2-1.0); TOTAL PROTEIN 6.3 g/dL (6.4-8.2)
--- NOTE | 2017-04-05 00:41 | PHYS DOC ---
Past History Past Medical History: Anxiety, Constipation, Depression, GERD, High Cholesterol , Hypothyroid, Hypotension, Other Additional Past Medical Histor: Down syndrome Past Surgical History: Appendectomy Alcohol Use: None Drug Use: None Adult General Chief Complaint Chief Complaint: left leg pain HPI HPI This is a pleasant 46-year-old male with a history of Down syndrome presenting to the emergency department by EMS. EMS reports the patient is told and that he has chest pain. When I examine and discussed with the patient his symptoms he complains of left leg pain in the left thigh. He is a very poor historian. He denies chest pain or shortness of breath to me. The pain in his leg is moderate intermittent nonradiating without leaving factors. He denies any rashes. On reexamination the patient denies any symptoms he denies leg pain or chest pain. Review of systems is negative for chest pain shortness of breath abdominal pain nausea or vomiting. All other review of systems is negative unless otherwise noted in history of present illness. ED course: 46-year-old gentleman presenting reporting chest pain to EMS which she denies to me. He endorses leg pain on my initial interview but when I reevaluated him he denies having left leg pain. Objectively: The patient's vital signs showed the afebrile with a normal heart rate. Saturating well on room air. Pertinent physical exam findings show normal extremities. No evidence of cellulitis. Nontender to palpation of the joints. Normal range of motion of the joints. Abdomen is soft and nontender. Lungs are clear to auscultation bilaterally. Regular rate and rhythm. EKG obtained and compared to previous on February 22, 2017 shows similar morphology. Sinus rhythm with a mildly bradycardic rate. ST segments congruent. Intervals show mild QRS prolongation. Chest x-ray obtained and reviewed by myself shows no obvious infiltrate or pneumothorax. Compared to previous on October [id number] similar in appearance. Blood work unremarkable. Heart score below. The patient was then discharged home in stable condition to follow up with their primary care physician over the next 2-3 days. They were to return if their symptoms worsened or if they were concerned for any reason. [id number] discharge instructions and return precautions were given. Patient's questions were answered to their satisfaction. Patient is comfortable plan. HEART SCORE History Slightly suspicious 0 Moderately suspicious +1 Highly suspicious +2 EKG 1 point: No ST depression but LBBB, LVH, repolarization changes (ex: digoxin); 2 points: ST depression/elevation not due to LBBB, LVH, or digoxin Normal 0 Non-specific repolarization disturbance +[address] depression +2 Age <45 0 45-65 +1 65 +2 Risk factors Risk factors: HTN, hypercholesterolemia, DM, obesity (BMI >30 kg/m), smoking (current, or smoking cessation 3 mo), positive family history (parent or sibling with CVD before age 65); atherosclerotic disease: prior NH, PCI/CABG, CVA/TIA, or peripheral arterial disease No known risk factors 0 1-2 risk factors +1 3 risk factors or history of atherosclerotic disease +2 Initial troponin Use local assays and corresponding cutoffs normal limit 0 1-2 normal limit +1 >2 normal limit +2 Total points 3 Review of Systems Review of Systems SEE ABOVE. Allergies Allergies Allergies Coded Allergies Type Severity Reaction Last Updated Verified No Known Drug Allergies 04/05/17 No Physical Exam Physical Exam SEE ABOVE Constitutional: Well developed, well nourished, no acute distress, non-toxic appearance. [] HENT: Normocephalic, atraumatic, bilateral external ears normal, oropharynx moist, no oral exudates, nose normal. [] Eyes: PERRLA, EOMI, conjunctiva normal, no discharge. [] Neck: Normal range of motion, no tenderness, supple, no stridor. [] Cardiovascular:Heart rate regular rhythm, no murmur [] Lungs & Thorax: Bilateral breath sounds clear to auscultation [] Abdomen: Bowel sounds normal, soft, no tenderness, no masses, no pulsatile masses. [] Skin: Warm, dry, no erythema, no rash. [] Back: No tenderness, no CVA tenderness. [] Extremities: No tenderness, no cyanosis, no clubbing, ROM intact, no edema. [] No evidence of erythema or swelling of the legs. Neurologic: Alert and oriented X 3, normal motor function, normal sensory function, no focal deficits noted. [] Psychologic: Affect normal, judgement normal, mood normal. [] Current Patient Data Lab Results Laboratory Tests Test 04/05/17 00:02 White Blood Count 5.0 x10^3/uL (4.0-11.0) Red Blood Count 3.36 x10^6/uL (4.30-5.70) L Hemoglobin 12.9 g/dL (13.0-17.5) L Hematocrit 36.2 % (39.0-53.0) L Mean Corpuscular Volume 108 fL (79-100) H Mean Corpuscular Hemoglobin 38 pg (25-35) H Mean Corpuscular Hemoglobin Concent 36 g/dL (31-37) Red Cell Distribution Width 14.1 % (11.5-14.5) Platelet Count 223 x10^3/uL (140-400) Neutrophils (%) (Auto) 47 % (31-73) Lymphocytes (%) (Auto) 38 % (24-48) Monocytes (%) (Auto) 10 % (0-9) H Eosinophils (%) (Auto) 1 % (0-3) Basophils (%) (Auto) 4 % (0-3) H Neutrophils # (Auto) 2.4 x10^3uL (1.8-7.7) Lymphocytes # (Auto) 1.9 x10^3/uL (1.0-4.8) Monocytes # (Auto) 0.5 x10^3/uL (0.0-1.1) Eosinophils # (Auto) 0.1 x10^3/uL (0.0-0.7) Basophils # (Auto) 0.2 x10^3/uL (0.0-0.2) Sodium Level 145 mmol/L (136-145) Potassium Level 4.3 mmol/L (3.5-5.1) Chloride Level 108 mmol/L (98-107) H Carbon Dioxide Level 33 mmol/L (21-32) H Anion Gap 4 (6-14) L Blood Urea Nitrogen 8 mg/dL (8-26) Creatinine 1.3 mg/dL (0.7-1.3) Estimated GFR (Cockcroft-Gault) 59.4 Glucose Level 84 mg/dL (70-99) Calcium Level 8.6 mg/dL (8.5-10.1) Total Bilirubin 0.3 mg/dL (0.2-1.0) Direct Bilirubin 0.1 mg/dL (0.0-0.2) Aspartate Amino Transferase (AST) 23 U/L (15-37) Alanine Aminotransferase (ALT) 23 U/L (16-63) Alkaline Phosphatase 65 U/L (46-116) Troponin I Quantitative < 0.017 ng/mL (0-0.055) Total Protein 6.3 g/dL (6.4-8.2) L Albumin 3.0 g/dL (3.4-5.0) L Lipase 136 U/L (73-393) EKG EKG [] Radiology/Procedures Radiology/Procedures [] Course & Med Decision Making Course & Med Decision Making Pertinent Labs and Imaging studies reviewed. (See chart for details) [] Dragon Disclaimer Dragon Disclaimer This electronic medical record was generated, in whole or in part, using a voice recognition dictation system. Departure Departure: Impression: Primary Impression: Leg pain Disposition: HOME, SELF-CARE Condition: STABLE Referrals: LILY TAVARES MD (PCP) Additional Instructions: Thank you for allowing us to participate in your care today. Followup with your primary care physician in 3 days if your symptoms do not improve. Call your Primary Doctor tomorrow and inform them of your visit today. If you do not have a primary care provider you can ask for a list of our primary care providers. Return to the emergency department you have any new or concerning findings. This should be evaluated by the primary care physician and any necessary consulting services for continued management within a few days after discharge. Return to emergency room if you have any new or concerning symptoms including but not limited to fever, chills, nausea, vomiting, intractable pain, any new rashes, chest pain, shortness of air, uncontrolled bleeding, difficulty breathing, and/or vision loss. JINA COLEMAN MD Apr 05, 2017 00:41
--- NOTE | 2017-04-05 01:09 | EKG ---
[address] [address] Test Date: 2017-04-04 Test Time: 23:58:02 Pat Name: JEY VERDUZCO Department: Room: Gender: M Life Enrichment Director: CAMPBELL : 1970 Requested By: JINA COLEMAN Order Number: [id number] Reading MD: Piotr Ceja Measurements Intervals [place] Rate: 51 P: 36 PA: 134 QRS: 55 QRSD: 102 T: 24 QT: 420 QTc: 389 Interpretive Statements SINUS RHYTHM R-S TRANSITION ZONE IN V LEADS DISPLACED TO THE RIGHT INCOMPLETE RIGHT BUNDLE BRANCH BLOCK NO SPECIFIC ECG ABNORMALITIES RI6.01 Unconfirmed report Electronically Signed On 04-10-2017 16:10:18 REFUELING RAMP ATTENDANT by Piotr Ceja
--- NOTE | 2017-04-05 08:11 | RAD ---
PORTABLE CHEST 1V Clinical Indication: chest pain Comparison: April 02, 2017 Technique: Upright portable AP view of the chest is obtained. Findings: No focal consolidation, pleural effusion or pneumothorax is seen. Cardiomediastinal silhouette is stable in size. Visualized osseous structures and overlying soft tissues demonstrate no acute interval change. IMPRESSION: No focal consolidation or acute radiographic finding.
== END 2017-04-05 01:00 | disposition home or self-care (01) ==
LOC: ER 23:55
DX: M79.652 Pain in left thigh (principal); K21.9 Gastro-esophageal reflux disease without esophagitis; E78.00 Pure hypercholesterolemia, unspecified; E03.9 Hypothyroidism, unspecified; F32.9 Major depressive disorder, single episode, unspecified; F41.9 Anxiety disorder, unspecified; Q90.9 Down syndrome, unspecified
CPT/HCPCS: 36415; 71010; 80048; 80076; 83690; 84484; 85025; 93005; 99285-25

== ENCOUNTER 2017-04-20 14:06 | Emergency (ER) | payer MEDICARE, OTHER ==
--- NOTE | 2017-04-20 15:02 | EKG ---
[address] [address] Test Date: 2017-04-20 Test Time: 14:32:22 Pat Name: JEY VERDUZCO Department: Room: Gender: M Programming Specialist: CAMPBELL : 1970 Requested By: ELIS PATTERSON Order Number: [id number] Reading MD: Piotr Ceja Measurements Intervals [place] Rate: 45 P: 32 SD: 134 QRS: 55 QRSD: 102 T: 34 QT: 460 QTc: 404 Interpretive Statements SINUS BRADYCARDIA INCOMPLETE RIGHT BUNDLE BRANCH BLOCK NONSPECIFIC ST-T WAVE CHANGES. RI6.01 Unconfirmed report Compared to ECG 04/04/2017 23:58:02 Sinus rhythm no longer present Electronically Signed On 05-01-2017 15:54:31 SOCIAL SCIENCES INSTRUCTOR by Piotr Ceja
[2017-04-20 15:07] VITALS: BP 96/57
--- NOTE | 2017-04-20 15:41 | RAD ---
H CT scan of the head without contrast 04/20/2017 Clinical History: Fall with head trauma. Technique: Unenhanced, contiguous, 5 mm axial sections were obtained through the head. One or more of the following individualized dose reduction techniques were utilized for this study: 1. Automated exposure control. 2. Adjustment of the mA and/or kV according to patient size. 3. Use of iterative reconstruction technique. Findings: Comparison study is dated 01/05/2012. There is generalized parenchymal atrophy. Small scattered areas of decreased attenuation are seen within the periventricular and subcortical white matter of both cerebral hemispheres consistent with areas of small vessel ischemic disease. No acute parenchymal abnormality is seen. No extra-axial fluid collection is noted. No skull fracture is seen. Impression: No acute intracranial abnormality is seen. CT scan of the cervical spine without contrast 04/20/2017 Clinical history: Neck pain post fall. Technique: Unenhanced, contiguous, 0.625 mm axial sections were obtained through the cervical spine. 2 mm reconstructed sagittal, axial, and and coronal images were obtained. One or more of the following individualized dose reduction techniques were utilized for this study: 1. Automated exposure control. 2. Adjustment of the mA and/or kV according to patient size. 3. Use of iterative reconstruction technique. Findings: Sagittal and coronal reconstructed images demonstrate mild lateral curvature of the cervical spine convex to the right. There is straightening of the normal cervical lordosis. Degenerative changes consisting of disc space narrowing, vertebral endplate sclerosis and mild anterior and posterior vertebral body osteophyte formation are seen involving the C5-6 disc space. No fracture or subluxation of the cervical vertebrae is seen. Degenerative changes are involving the uncovertebral and facet joints throughout the cervical disc spaces. Impression: No fracture or subluxation of the cervical vertebra is seen.
[2017-04-20 16:09] LABS: BASO # 0.1 x10^3/uL (0.0-0.2); BASO % 3 % (0-3); EOS # 0.1 x10^3/uL (0.0-0.7); EOS % 2 % (0-3); HEMATOCRIT 39.7 % (39.0-53.0); HEMOGLOBIN 13.5 g/dL (13.0-17.5); LYMPH # 1.4 x10^3/uL (1.0-4.8); LYMPH % 37 % (24-48); MEAN CORPUSCULAR HEMOGLOBIN 37 pg (25-35); MEAN CORPUSCULAR HGB CONC 34 g/dL (31-37); MEAN CORPUSCULAR VOLUME 110 fL (79-100); MONO # 0.3 x10^3/uL (0.0-1.1); MONO % 9 % (0-9); NEUT # 1.9 x10^3uL (1.8-7.7); NEUT % 50 % (31-73); PLATELET COUNT 231 x10^3/uL (140-400); RED BLOOD COUNT 3.61 x10^6/uL (4.30-5.70); RED CELL DISTRIBUTION WIDTH 14.1 % (11.5-14.5); WHITE BLOOD COUNT 3.8 x10^3/uL (4.0-11.0)
[2017-04-20 16:24] LABS: ALBUMIN 2.9 g/dL (3.4-5.0); ALBUMIN/GLOBULIN RATIO 0.8 (1.0-1.7); ALK PHOS 63 U/L (46-116); ALT (SGPT) 22 U/L (16-63); ANION GAP 6 (6-14); AST (SGOT) 25 U/L (15-37); BLOOD UREA NITROGEN 13 mg/dL (8-26); BUN/CREATININE RATIO 10 (6-20); CALCIUM 8.9 mg/dL (8.5-10.1); CARBON DIOXIDE 32 mmol/L (21-32); CHLORIDE 107 mmol/L (98-107); CREATININE 1.3 mg/dL (0.7-1.3); GFR 59.4; GLUCOSE 96 mg/dL (70-99); POTASSIUM 4.9 mmol/L (3.5-5.1); SODIUM 145 mmol/L (136-145); TOTAL BILIRUBIN 0.2 mg/dL (0.2-1.0); TOTAL PROTEIN 6.7 g/dL (6.4-8.2)
[2017-04-20 16:25] LABS: VAL ACID 65 mcg/mL (50-100)
--- NOTE | 2017-04-20 17:13 | PHYS DOC ---
Past History Past Medical History: Anxiety, Constipation, Depression, GERD, High Cholesterol , Hypothyroid, Hypotension, Other Additional Past Medical Histor: Down syndrome Past Surgical History: Appendectomy Alcohol Use: None Drug Use: None Adult General Chief Complaint Chief Complaint: SEIZURE HPI HPI 46-year-old male patient with history of Down syndrome and anxiety and seizures on Depakote and resident of [facility] is in by EMS because of seizure. Patient states he felt he was going to have a seizure and laid on the ground without having a fall. Patient changed his story later on and stated he had an unwitnessed seizure for a short time EMS with c-collar in place. Patient denies any problem at this time. Patient is a poor historian. Review of Systems Review of Systems Constitutional: Denies fever or chills [] Eyes: Denies change in visual acuity, redness, or eye pain [] HENT: Denies nasal congestion or sore throat [] Respiratory: Denies cough or shortness of breath [] Cardiovascular: No additional information not addressed in HPI [] GI: Denies abdominal pain, nausea, vomiting, bloody stools or diarrhea [] : Denies dysuria or hematuria [] Musculoskeletal: Denies back pain or joint pain [] Integument: Denies rash or skin lesions [] Neurologic: Denies headache, focal weakness or sensory changes [] Endocrine: Denies polyuria or polydipsia [] All other systems were reviewed and found to be within normal limits, except as documented in this note. Allergies Allergies Allergies Coded Allergies Type Severity Reaction Last Updated Verified No Known Drug Allergies 04/05/17 No Physical Exam Physical Exam Constitutional: Well nourished, no acute distress, non-toxic appearance. [] HENT: Normocephalic, atraumatic, bilateral external ears normal, oropharynx moist, no oral exudates, nose normal. [] Eyes: PERRLA, EOMI, conjunctiva normal, no discharge. [] Neck: Immobilized Cardiovascular: Bradycardia, no murmur [] Lungs & Thorax: Bilateral breath sounds clear to auscultation [] Abdomen: Bowel sounds normal, soft, no tenderness, no masses, no pulsatile masses. [] Skin: Warm, dry, no erythema, no rash. [] Back: No tenderness, no CVA tenderness. [] Extremities: No tenderness, no cyanosis, no clubbing, ROM intact, no edema. [] Neurologic: Alert and oriented X 3, normal motor function, normal sensory function, no focal deficits noted. [] Psychologic: Affect normal, judgement normal, mood normal. [] Current Patient Data Vital Signs Vital Signs Date Time Temp Pulse Resp B/P (MAP) Pulse Ox O2 Delivery O2 Flow Rate FiO2 04/20/17 15:07 97.6 50 16 100 Room Air Lab Results Laboratory Tests Test 04/20/17 15:50 White Blood Count 3.8 x10^3/uL (4.0-11.0) L Red Blood Count 3.61 x10^6/uL (4.30-5.70) L Hemoglobin 13.5 g/dL (13.0-17.5) Hematocrit 39.7 % (39.0-53.0) Mean Corpuscular Volume 110 fL (79-100) H Mean Corpuscular Hemoglobin 37 pg (25-35) H Mean Corpuscular Hemoglobin Concent 34 g/dL (31-37) Red Cell Distribution Width 14.1 % (11.5-14.5) Platelet Count 231 x10^3/uL (140-400) Neutrophils (%) (Auto) 50 % (31-73) Lymphocytes (%) (Auto) 37 % (24-48) Monocytes (%) (Auto) 9 % (0-9) Eosinophils (%) (Auto) 2 % (0-3) Basophils (%) (Auto) 3 % (0-3) Neutrophils # (Auto) 1.9 x10^3uL (1.8-7.7) Lymphocytes # (Auto) 1.4 x10^3/uL (1.0-4.8) Monocytes # (Auto) 0.3 x10^3/uL (0.0-1.1) Eosinophils # (Auto) 0.1 x10^3/uL (0.0-0.7) Basophils # (Auto) 0.1 x10^3/uL (0.0-0.2) Platelet Estimate Pending Sodium Level 145 mmol/L (136-145) Potassium Level 4.9 mmol/L (3.5-5.1) Chloride Level 107 mmol/L (98-107) Carbon Dioxide Level 32 mmol/L (21-32) Anion Gap 6 (6-14) Blood Urea Nitrogen 13 mg/dL (8-26) Creatinine 1.3 mg/dL (0.7-1.3) Estimated GFR (Cockcroft-Gault) 59.4 BUN/Creatinine Ratio 10 (6-20) Glucose Level 96 mg/dL (70-99) Lactic Acid Level 1.3 mmol/L (0.4-2.0) Calcium Level 8.9 mg/dL (8.5-10.1) Total Bilirubin 0.2 mg/dL (0.2-1.0) Aspartate Amino Transferase (AST) 25 U/L (15-37) Alanine Aminotransferase (ALT) 22 U/L (16-63) Alkaline Phosphatase 63 U/L (46-116) Total Protein 6.7 g/dL (6.4-8.2) Albumin 2.9 g/dL (3.4-5.0) L Albumin/Globulin Ratio 0.8 (1.0-1.7) L Valproic Acid Level 65 mcg/mL (50-100) Valproic Acid Last Dose Date 04/19/17 Valproic Acid Last Dose Time 2100 EKG EKG [EKG interpreted by me. EKG at 1432 showed sinus bradycardia at rate of 46, incomplete right bundle branch block, no ST and T wave abnormality] Radiology/Procedures Radiology/Procedures [] Course & Med Decision Making Course & Med Decision Making Pertinent Labs and Imaging studies reviewed. (See chart for details) Evaluation of patient in ER showed 46-year-old male patient with history of Down syndrome and seizure brought in for possible seizure at [facility]. Patient had unremarkable physical exam and CT head and neck and labs. Depakote level was in therapeutic range of 65. Patient ambulated without problem and tolerated oral intake. Patient instructed to follow up with his primary care physician and neurologist and continue current home medication. Dragon Disclaimer Dragon Disclaimer This electronic medical record was generated, in whole or in part, using a voice recognition dictation system. Departure Departure: Impression: Primary Impression: Seizure Additional Impressions: Bradycardia Down syndrome Disposition: HOME, SELF-CARE (to [facility] at 1712) Condition: IMPROVED Referrals: LILY TAVARES MD (PCP) Patient Instructions: Seizure, Adult Additional Instructions: Continue current medication Follow-up with your primary care physician and neurologist in 2 or 3 days Problem Qualifiers ELIS PATTERSON MD Apr 20, 2017 17:13
[2017-04-20 21:37] LABS: % BANDS 2 % (0-9); % LYMPHS 41 % (24-48); % MONOS 8 % (0-10); % SEGS 49 % (35-66)
[2017-04-20 21:38] LABS: PLT ESTIMATE ADEQUATE (ADEQUATE)
[2017-04-30] MEDS ORDERED: MIDO5TAB PO ×2 (02:53→13:35)
== END 2017-04-20 17:42 | disposition home or self-care (01) ==
LOC: ER 14:06
DX: R56.9 Unspecified convulsions (principal); R00.1 Bradycardia, unspecified; Q90.9 Down syndrome, unspecified; K21.9 Gastro-esophageal reflux disease without esophagitis; E03.9 Hypothyroidism, unspecified; E78.00 Pure hypercholesterolemia, unspecified; F41.9 Anxiety disorder, unspecified; F32.9 Major depressive disorder, single episode, unspecified
CPT/HCPCS: 36415; 70450; 72125; 80053; 80164; 83605; 85007; 85025; 93005; 99285-25

== ENCOUNTER 2017-04-29 20:20 | Observation (INO) | payer MEDICARE, OTHER ==
[~2017-04-29] VITALS: Ht 154.9 cm; Wt 56.8 kg
[2017-04-29] MEDS ORDERED: IV NORMAL SALINE 1,000ML 1,000 ML IV ONE (21:00)
[2017-04-29] MEDS ORDERED: ONDANSETRON ODT 4 MG TAB.RAPDIS PO ONE (21:15)
[2017-04-29] MEDS ORDERED: LIDO:MAALOX 1:1 20 ML SINGLE DOSE PO ONE (21:15)
[2017-04-29 21:42] LABS: BASO # 0.1 x10^3/uL (0.0-0.2); BASO % 2 % (0-3); EOS % 0 % (0-3); HEMATOCRIT 34.6 % (39.0-53.0); HEMOGLOBIN 12.2 g/dL (13.0-17.5); LYMPH # 1.6 x10^3/uL (1.0-4.8); LYMPH % 32 % (24-48); MEAN CORPUSCULAR HEMOGLOBIN 38 pg (25-35); MEAN CORPUSCULAR HGB CONC 35 g/dL (31-37); MEAN CORPUSCULAR VOLUME 109 fL (79-100); MONO # 0.3 x10^3/uL (0.0-1.1); MONO % 7 % (0-9); NEUT # 2.9 x10^3uL (1.8-7.7); NEUT % 59 % (31-73); PLATELET COUNT 267 x10^3/uL (140-400); RED BLOOD COUNT 3.18 x10^6/uL (4.30-5.70); RED CELL DISTRIBUTION WIDTH 13.9 % (11.5-14.5); WHITE BLOOD COUNT 4.9 x10^3/uL (4.0-11.0)
[2017-04-29 21:54] LABS: ALBUMIN 3.1 g/dL (3.4-5.0); ALBUMIN/GLOBULIN RATIO 0.9 (1.0-1.7); CALCIUM 8.7 mg/dL (8.5-10.1); CREATININE 1.2 mg/dL (0.7-1.3); GFR 65.2; MAGNESIUM 2.1 mg/dL (1.8-2.4); POTASSIUM 3.6 mmol/L (3.5-5.1); TOTAL BILIRUBIN 0.3 mg/dL (0.2-1.0); TOTAL PROTEIN 6.5 g/dL (6.4-8.2)
--- NOTE | 2017-04-29 21:55 | EKG ---
[address] [address] Test Date: 2017-04-29 Test Time: 21:29:28 Pat Name: JEY VERDUZCO Department: Room: Gender: M Associate Drafter: CAMPBELL : 1970 Requested By: LAXMI NARAYANAN Order Number: [id number] Reading MD: Measurements Intervals [place] Rate: 49 P: 24 GA: 142 QRS: 39 QRSD: 102 T: 25 QT: 426 QTc: 387 Interpretive Statements SINUS BRADYCARDIA NO SPECIFIC ECG ABNORMALITIES RI6.01 Unconfirmed report No previous ECG available for comparison
[2017-04-29 22:43] LABS: BACTERIA,URINE 0 /HPF (0-FEW); BILIRUBIN,URINE NEG (NEG); CLARITY,URINE CLEAR; COLOR,URINE YELLOW; GLUCOSE,URINE NEG (NEG); NITRITE,URINE NEG (NEG); RBC,URINE 0 /HPF (0-2); SQUAMOUS EPITHELIAL CELL,UR OCC /LPF; UROBILINOGEN,URINE 0.2 mg/dL (0.2 mg/dL); WBC,URINE 0 /HPF (0-4)
[2017-04-29] MEDS ORDERED: ACETAMINOPHEN 325 MG TABLET PO PRN (23:00)
[2017-04-29] MEDS ORDERED: ONDANSETRON PF 4 MG/2 ML VIAL. IV PRN (23:00)
[2017-04-30 01:22] VITALS: BP 104/54
--- NOTE | 2017-04-30 02:25 | PHYS DOC ---
Past History Past Medical History: Anxiety, Constipation, Depression, GERD, High Cholesterol , Hypothyroid, Hypotension, Other Additional Past Medical Histor: Down syndrome Past Surgical History: Appendectomy Alcohol Use: None Drug Use: None Adult General Chief Complaint Chief Complaint: ABDOMINAL PAIN HPI HPI Patient is a 46 year old male who presents with nausea. The patient reports onset of indigestion & nausea after drinking several bottles of Pepsi. He reports epigastric discomfort. Denies fevers/chills, vomiting, diarrhea, constipation, dysuria, hematuria. He has history of Down syndrome, reports that he lives alone. EMS expressing concern that he had essentially no food in the home, minimal clothing, concern that he is unable to care for himself. ED RN concerned that he has lost weight since previous visit. Not accompanied by guardian. Review of Systems Review of Systems Constitutional: Denies fever or chills HENT: Denies nasal congestion or sore throat Respiratory: Denies cough or shortness of breath Cardiovascular: Denies chest pain or edema GI: Reports abdominal pain, nausea, denies vomiting, bloody stools or diarrhea : Denies dysuria or hematuria Musculoskeletal: Denies back pain or joint pain Integument: Denies rash or skin lesions Neurologic: Denies headache, focal weakness or sensory changes All other systems were reviewed and found to be within normal limits, except as documented in this note. Current Medications Current Medications Current Medications Medications (Trade) Dose Ordered Sig/Richard Start Time Stop Time Status Last Admin Dose Admin Multi-Ingredient Mouthwash/Gargle (Gi Cocktail) 20 ml 1X ONCE 04/29/17 21:15 04/29/17 21:16 DC 04/29/17 21:15 20 ML Ondansetron HCl (Zofran Odt) 4 mg 1X ONCE 04/29/17 21:15 04/29/17 21:16 DC 04/29/17 21:15 4 MG Sodium Chloride 1,000 ml @ 1,000 mls/hr 1X ONCE 04/29/17 21:00 04/29/17 21:59 DC 04/29/17 21:15 1,000 MLS/HR Allergies Allergies Allergies Coded Allergies Type Severity Reaction Last Updated Verified No Known Drug Allergies 04/05/17 No Physical Exam Physical Exam Constitutional: Well developed, well nourished, no acute distress, non-toxic appearance. HENT: Normocephalic, atraumatic, bilateral external ears normal, oropharynx moist, nose normal. Eyes: PERRLA, EOMI, conjunctiva normal, no discharge. Neck: supple, no stridor. Cardiovascular: RRR, no murmurs, no edema. Lungs & Thorax: LCTAB, no wheezing, no respiratory distress. Abdomen: soft, no focal abdominal tenderness with palpation, no rebound or guarding, no masses or pulsatile masses,, nondistended. Skin: Warm, dry, no erythema, no rash. Back: No CVA tenderness. Extremities: No tenderness, no edema. Neurologic: Alert and oriented X 3, no focal deficits noted. Psychologic: Affect normal, judgement normal, mood normal. Current Patient Data Vital Signs Vital Signs Date Time Temp Pulse Resp B/P (MAP) Pulse Ox O2 Delivery O2 Flow Rate FiO2 04/30/17 01:22 97.4 59 18 104/54 (71) 97 Room Air Lab Results Laboratory Tests Test 04/29/17 21:10 04/29/17 21:24 White Blood Count 4.9 x10^3/uL (4.0-11.0) Red Blood Count 3.18 x10^6/uL (4.30-5.70) L Hemoglobin 12.2 g/dL (13.0-17.5) L Hematocrit 34.6 % (39.0-53.0) L Mean Corpuscular Volume 109 fL (79-100) H Mean Corpuscular Hemoglobin 38 pg (25-35) H Mean Corpuscular Hemoglobin Concent 35 g/dL (31-37) Red Cell Distribution Width 13.9 % (11.5-14.5) Platelet Count 267 x10^3/uL (140-400) Neutrophils (%) (Auto) 59 % (31-73) Lymphocytes (%) (Auto) 32 % (24-48) Monocytes (%) (Auto) 7 % (0-9) Eosinophils (%) (Auto) 0 % (0-3) Basophils (%) (Auto) 2 % (0-3) Neutrophils # (Auto) 2.9 x10^3uL (1.8-7.7) Lymphocytes # (Auto) 1.6 x10^3/uL (1.0-4.8) Monocytes # (Auto) 0.3 x10^3/uL (0.0-1.1) Eosinophils # (Auto) 0.0 x10^3/uL (0.0-0.7) Basophils # (Auto) 0.1 x10^3/uL (0.0-0.2) Sodium Level 142 mmol/L (136-145) Potassium Level 3.6 mmol/L (3.5-5.1) Chloride Level 105 mmol/L (98-107) Carbon Dioxide Level 32 mmol/L (21-32) Anion Gap 5 (6-14) L Blood Urea Nitrogen 4 mg/dL (8-26) L Creatinine 1.2 mg/dL (0.7-1.3) Estimated GFR (Cockcroft-Gault) 65.2 BUN/Creatinine Ratio 3 (6-20) L Glucose Level 86 mg/dL (70-99) Calcium Level 8.7 mg/dL (8.5-10.1) Magnesium Level 2.1 mg/dL (1.8-2.4) Total Bilirubin 0.3 mg/dL (0.2-1.0) Aspartate Amino Transferase (AST) 23 U/L (15-37) Alanine Aminotransferase (ALT) 23 U/L (16-63) Alkaline Phosphatase 55 U/L (46-116) Troponin I Quantitative 0.017 ng/mL (0-0.055) Total Protein 6.5 g/dL (6.4-8.2) Albumin 3.1 g/dL (3.4-5.0) L Albumin/Globulin Ratio 0.9 (1.0-1.7) L Urine Collection Type Unknown Urine Color Yellow Urine Clarity Clear Urine pH 6.5 Urine Specific [place] <=1.005 Urine Protein Neg (NEG-TRACE) Urine Glucose (UA) Neg mg/dL (NEG) Urine Ketones (Stick) Neg mg/dL (NEG) Urine Blood Neg (NEG) Urine Nitrite Neg (NEG) Urine Bilirubin Neg (NEG) Urine Urobilinogen Dipstick 0.2 mg/dL (0.2 mg/dL) Urine Leukocyte Esterase Neg (NEG) Urine RBC 0 /HPF (0-2) Urine WBC 0 /HPF (0-4) Urine Squamous Epithelial Cells Occ /LPF Urine Bacteria 0 /HPF (0-FEW) EKG EKG interpreted by me: sinus bradycardia rate 49, no ST elevation, T wave inversion in V1 without ST depression, normal intervals, no ectopy. Radiology/Procedures Radiology/Procedures [] Course & Med Decision Making Course & Med Decision Making Pertinent Labs and Imaging studies reviewed. (See chart for details) The patient presents with abdominal pain. Vitals were stable, no focal tenderness on exam. Did not find serious medical abnormality today but multiple healthcare providers concerned about his ability to care for himself, & guardian was not here with the patient. I believe he would benefit from school social worker evaluation. Discussed with Dr. Prakash who agrees to admit to observation status. Patient agrees with plan of care. The patient is admitted in stable condition. [] Dragon Disclaimer Dragon Disclaimer This electronic medical record was generated, in whole or in part, using a voice recognition dictation system. Departure Departure: Impression: Primary Impression: Failure to thrive Disposition: ADMITTED INPATIENT Admitting Physician: Rosa Prakash Condition: STABLE Problem Qualifiers Primary Impression: Failure to thrive Failure to thrive age range: in adult Qualified Codes: R62.7 - Adult failure to thrive LAXMI NARAYANAN MD Apr 30, 2017 02:25
[2017-04-30] MEDS ORDERED: DIVA500T17 PO (02:53)
[2017-04-30] MEDS ORDERED: SERT50TA8 PO (02:53)
[2017-04-30] MEDS ORDERED: MIDO5TAB PO ×2 (02:53→13:35)
[2017-04-30 05:40] VITALS: BP 98/56
[2017-04-30 06:47] LABS: CALCIUM 8.3 mg/dL (8.5-10.1); CREATININE 1.2 mg/dL (0.7-1.3); GFR 65.2
[2017-04-30 06:48] LABS: BASO # 0.1 x10^3/uL (0.0-0.2); BASO % 1 % (0-3); EOS % 1 % (0-3); HEMATOCRIT 33.4 % (39.0-53.0); HEMOGLOBIN 11.9 g/dL (13.0-17.5); LYMPH # 2.4 x10^3/uL (1.0-4.8); LYMPH % 50 % (24-48); MEAN CORPUSCULAR HEMOGLOBIN 39 pg (25-35); MEAN CORPUSCULAR HGB CONC 36 g/dL (31-37); MEAN CORPUSCULAR VOLUME 110 fL (79-100); MONO # 0.3 x10^3/uL (0.0-1.1); MONO % 7 % (0-9); NEUT % 41 % (31-73); PLATELET COUNT 236 x10^3/uL (140-400); RED BLOOD COUNT 3.03 x10^6/uL (4.30-5.70); WHITE BLOOD COUNT 4.9 x10^3/uL (4.0-11.0)
[2017-04-30] MEDS ORDERED: CALCIUM CARBONATE 500 MG TAB.CHEW PO PRN (08:30)
[2017-04-30] MEDS ORDERED: ACETAMINOPHEN 325 MG TABLET PO PRN (08:30)
[2017-04-30] MEDS ORDERED: MIDODRINE 5 MG TABLET PO SCH ×2 (09:00→13:30)
[2017-04-30] MEDS ORDERED: DIVALPROEX ER 500 MG TAB.ER.24H PO SCH (09:00)
[2017-04-30] MEDS ORDERED: SERTRALINE 50 MG TABLET. PO SCH (09:00)
[2017-04-30] MEDS ORDERED: LEVOTHYROXINE 25 MCG TABLET. PO SCH (09:00)
[2017-04-30 11:05] VITALS: BP 96/59
[2017-04-30 13:30] VITALS: BP 96/59
--- NOTE | 2017-04-30 15:41 | HP ---
ADMIT DATE: 04/30/2017 REASON FOR ADMISSION: Weakness and stomach pain. HISTORY OF PRESENT ILLNESS: A 46-year-old male with intellectual disability and Down syndrome, frequently uses the Emergency Room for his healthcare. He often drinks excessive amounts of Pepsi, gets a belly ache and calls 911. He has been spoken to regarding this. At this time, the EMS was concerned that he has lost weight and nurses did not feel like he was in his usual self. There was some concern that he had no food in his home, however, he does throw it out because he does not like it and really only likes to eat chips and soda. Previously used to live at [facility], but is now resides in his own apartment for some time. He is monitored on a daily basis by a leather case finisher and social organization professor. PAST MEDICAL HISTORY: Down syndrome, intellectual disability, depression, mood disorder, left undescended testicle, hypothyroidism, reflux, hyperlipidemia, chronic constipation and history of seizure disorder. PAST SURGICAL HISTORY: Unremarkable. SOCIAL HISTORY: The patient no longer lives at [facility], but lives in his own apartment. No smoking or drinking. The patient is looked in on daily. FAMILY HISTORY: He has a father, who does not live in the area. ALLERGIES: None. MEDICATIONS: Reviewed and are available on the MAR. REVIEW OF SYSTEMS: Reports just a little bit of belly ache, otherwise negative. OBJECTIVE: VITAL SIGNS: Blood pressure is 96/59, pulse 55, respirations 20, temperature 97.4, pulse ox is 98% on room air. Height 61 inches, weight 125.31 pounds. GENERAL: a 46-year-old, in no acute distress. He is alert. HEENT: His eyes are clear. Nose patent. Throat clear. NECK: Supple. He has a very large tongue with some fasciculations. LUNGS: Clear to auscultation. CARDIOVASCULAR: Regular rhythm and rate. ABDOMEN: Soft. Bowel sounds are positive. Mildly diffusely tender, no rebound. EXTREMITIES: Without edema. LABORATORY DATA: Normal white count, hemoglobin 11.9, hematocrit 33.4. Does have quite an elevated MCV of 110. Albumin is 3.1. ASSESSMENT: 1. Mild protein calorie malnutrition. 2. Intellectual disability. 3. Poor social situation. 4. Macrocytosis, questionable etiology. B12 checked. 5. Gastroesophageal reflux disease. PLAN: The patient received some IV fluids. He received some medicine for his stomach. Blood pressure is little low. We will go ahead and increase his midodrine to t.i.d. and social work is assisting at the moment whether staying at home is a good idea or some alternative can be found. CHELSEA HARLEY DO DR: CHANO/gabriela JOB#: [id number] / [id number]
[2017-04-30] MEDS ORDERED: ZIPRASIDONE 80 MG CAPSULE. PO SCH (21:00)
[2017-04-30] MEDS ORDERED: SIMVASTATIN 40 MG TABLET. PO SCH (21:00)
--- NOTE | 2017-04-30 22:06 | DS ---
DATE OF DISCHARGE: 04/30/2017 HOSPITAL COURSE: Please note that a full H and P has already been done today. Due to the fact that the patient's workup has been negative, he will be discharged today back to a half-way. Some of the social issues he was having has been resolved and Susana Vickers has worked with him today. DISCHARGE DIAGNOSES: Weakness, developmental disability, intellectual disability, and gastroesophageal reflux disease. Medications have been reconciled. CHELSEA HARLEY DO DR: CHANO/gabriela JOB#: [id number] / [id number]
== END 2017-04-30 16:00 | disposition home or self-care (01) ==
LOC: ER 20:20 → 1 SOUTH 22:17 → INTOOBSV 22:17
PROVIDERS: ADMIT Family Medicine; ATTEND Family Medicine
DX: R53.1 Weakness (principal); F79 Unspecified intellectual disabilities; K21.9 Gastro-esophageal reflux disease without esophagitis; Q90.9 Down syndrome, unspecified; F39 Unspecified mood [affective] disorder; E03.9 Hypothyroidism, unspecified; E78.5 Hyperlipidemia, unspecified; G40.909 Epilepsy, unspecified, not intractable, without status epilepticus; E44.1 Mild protein-calorie malnutrition; D75.89 Other specified diseases of blood and blood-forming organs; F32.9 Major depressive disorder, single episode, unspecified; F41.9 Anxiety disorder, unspecified; E78.00 Pure hypercholesterolemia, unspecified; R62.7 Adult failure to thrive; Z90.49 Acquired absence of other specified parts of digestive tract
CPT/HCPCS: 36415; 80048; 80053; 81001; 82607; 83540; 83550; 83735; 84484; 85025; 93005; 96360; 96361; 99285; G0378; G0379; Q0162; J7030

== ENCOUNTER → 2021-08-20 | Outpatient (CLI) | payer MEDICARE, MEDICAID ==
[~2021-08-20] MED LIST changes: -ASPI-612 PO; +ASPI-889 PO; +DIVA-53 PO; -DIVA500T9 PO; -ECON15CR TP; +ECON15CR8 TP; -MIDO5TAB PO; +MIDO5TAB4 PO; -OLOP2.5D EACHEYE; +OLOP2.5D12 EACHEYE; -OMEP40CA5 PO; +OMEP40CA7 PO; +RANI-376 PO; -RANI150T6 PO; +SERT-267 PO; +SERT-268 PO; -SERT25TA4 PO; +SIMV40TA18 PO; -SIMV40TA3 PO; -SUCR1ORA11 PEG; +SUCR1ORA14 PEG
--- NOTE | 2021-08-20 16:06 | RAD ---
EXAM: XR CHEST 2V 08/20/2021 10:50 AM CLINICAL INDICATION: Pneumonia COMPARISON: Chest radiograph 04/04/2017 TECHNIQUE: PA and lateral views of the chest FINDINGS: The heart is normal in size. Lungs are hypoexpanded. No consolidation, pleural effusion, o r pneumothorax. No obvious acute osseous abnormality. IMPRESSION: No acute cardiopulmonary abnormality. Electronically signed by: Nelda Locke MD (08/20/2021 4:04 PM) [id number]
== END ==
LOC: RAD 10:41
PROVIDERS: ATTEND Specialist
DX: J18.9 Pneumonia, unspecified organism (principal)
CPT/HCPCS: 71046